=== PATIENT | female | born 1940 | race Caucasian/White ===

== ENCOUNTER 2016-08-30 10:42 | Inpatient (IN) | payer BC ==
--- NOTE | 2016-08-30 11:16 | ER Document Report ---
ED Medical Screen (RME) - General Stated Complaint: FALL/LEFT LEG PAIN Notes: Patient states that she was sent over from Dr. Solis office to rule out blood clot in the left leg. Patient fell on Friday, and had sudden pain and swelling since. Denies chest pain or shortness of breath. Patient states left lower leg is red and swollen. Patient denies previous history of DVTs. I have greeted and performed a rapid initial assessment of this patient. A comprehensive ED assessment and evaluation of the patient, analysis of test results and completion of the medical decision making process will be conducted by additional ED providers. TRAVEL OUTSIDE OF THE [place] IN LAST 30 DAYS: No - Related Data Allergies/Adverse Reactions: No Known Allergies Allergy (Verified 08/30/16 11:14) Past Medical History - Past Medical History Cardiac Medical History: Reports: Hx Hypertension Past Surgical History: Reports: Hx Cholecystectomy Physical Exam - Vital signs Vitals: Temp Pulse Resp BP Pulse Ox 97.3 F 91 20 157/72 H 97 08/30/16 11:10 08/30/16 11:10 08/30/16 11:10 08/30/16 11:10 08/30/16 11:10 - Skin Notes: Left lower leg from the knee down is red, swollen, and tender. Course - Vital Signs Vital signs: Temp Pulse Resp BP Pulse Ox 97.3 F 91 20 157/72 H 97 08/30/16 11:10 08/30/16 11:10 08/30/16 11:10 08/30/16 11:10 08/30/16 11:10
[2016-08-30 12:00] LABS: ALANINE AMINOTRANSFERASE 33 U/L (9-52); ALBUMIN 3.5 g/dL (3.5-5.0); ALKALINE PHOSPHATASE 164 U/L (38-126); ANION GAP 15 (5-19); ASPARTATE AMINO TRANSFERASE 49 U/L (14-36); BILIRUBIN,DIRECT 0.6 mg/dL (0.0-0.4); BILIRUBIN,TOTAL 0.9 mg/dL (0.2-1.3); BLOOD UREA NITROGEN 32 mg/dL (7-20); CALCIUM 9.3 mg/dL (8.4-10.2); CARBON DIOXIDE 24 mmol/L (22-30); CHLORIDE 103 mmol/L (98-107); CREATININE RESULT 1.45 mg/dL (0.52-1.25); GLUCOSE 143 mg/dL (75-110); POTASSIUM 3.9 mmol/L (3.6-5.0); TOTAL PROTEIN 7.1 g/dL (6.3-8.2)
--- NOTE | 2016-08-30 13:00 | VASCULAR PRELIM REPORT ---
Provider Note Provider Note: Called in to [employer] [facility]ba at 1256. negative for DVT. 3 cms, left Popliteal cyst.
[2016-08-30 13:56] LABS: ADD ON TESTING BLD IN LAB ACKNOWLEDGE
[2016-08-30] MEDS ORDERED: CLINDAMYCIN 600 MG/D5W RTU 50 ML IV ONE (14:09)
[2016-08-30 14:11] LABS: CREATINE KINASE 316 U/L (30-135)
[2016-08-30] MEDS ORDERED: DIPH/PERTUSS(ACELL)/TETANUS VAC/PF 0.5 ML SYR (>=10YO) IM ONE (14:17)
[2016-08-30] MEDS ORDERED: NORMAL SALINE 1000 ML 500 ML IV ONE (14:19)
--- NOTE | 2016-08-30 14:19 | ER Document Report ---
ED Extremity Problem, Lower - General Chief Complaint: Fall Stated Complaint: FALL/LEFT LEG PAIN Information source: Patient Notes: Patient states that she fell at home 2 days ago and was unable to get up immediately after the fall. Patient states she is uncertain what caused her to fall, patient is uncertain if she may have lost consciousness or not. Patient states that she laid in the bathroom floor for about an hour and then her got up and was able to help her get up. Patient states since then she has been ambulating without difficulty. Patient does complain of left lower extremity pain and redness that started to develop yesterday. Patient denies any fever. Patient denies any cough, cold symptoms, chest pain, or shortness of breath. TRAVEL OUTSIDE OF THE [place] IN LAST 30 DAYS: No - HPI Patient complains to provider of: Pain, Swelling Location: Leg. No: Knee Occurred: Yesterday Where: Home Onset/Duration: Worse Quality of pain: Achy Pain Level: 3 Context: Fell Recent injury: Yes Exacerbated by: Walking Relieved by: Nothing - Related Data Allergies/Adverse Reactions: No Known Allergies Allergy (Verified 08/30/16 11:14) Past Medical History - General Information source: Patient - Social History Smoking Status: Never Smoker Chew tobacco use (# tins/day): No Frequency of alcohol use: None Drug Abuse: None Occupation: none Lives with: Spouse/Significant other Family History: Reviewed & Not Pertinent - Past Medical History Cardiac Medical History: Reports: Hx Hypertension Renal/ Medical History: Denies: Hx Peritoneal Dialysis Past Surgical History: Reports: Hx Cholecystectomy Review of Systems - Review of Systems Constitutional: No symptoms reported. denies: Fever, Recent illness EENT: No symptoms reported Cardiovascular: No symptoms reported. denies: Chest pain, Heart racing, Dizziness, Lightheaded Respiratory: No symptoms reported. denies: Cough, Short of breath Gastrointestinal: No symptoms reported. denies: Abdominal pain, Nausea, Vomiting Genitourinary: No symptoms reported. denies: Dysuria Female Genitourinary: No symptoms reported Musculoskeletal: Other - Left lower extremity pain and swelling. denies: Back pain Skin: Change in color - Left lower extremity redness Hematologic/Lymphatic: No symptoms reported Neurological/Psychological: No symptoms reported Physical Exam - Vital signs Vitals: Temp Pulse Resp BP Pulse Ox 97.3 F 91 20 157/72 H 97 08/30/16 11:10 08/30/16 11:10 08/30/16 11:10 08/30/16 11:10 08/30/16 11:10 - General General appearance: Appears well, Alert In distress: None - HEENT Head: Normocephalic, Atraumatic Eyes: Normal Conjunctiva: Normal Nasal: Normal Mouth/Lips: Normal Mucous membranes: Normal Neck: Normal, Supple. No: Lymphadenopathy - Respiratory Respiratory status: No respiratory distress Chest status: Nontender Breath sounds: Normal. No: Rales, Rhonchi, Stridor, Wheezing Chest palpation: Normal - Cardiovascular Rhythm: Regular Heart sounds: S1 appreciated, S2 appreciated Murmur: No Pulses: Normal: Dorsalis pedis - Abdominal Inspection: Normal Distension: No distension Bowel sounds: Normal Tenderness: Nontender Organomegaly: No organomegaly - Back Back: Normal, Nontender. No: CVA tenderness, Vertebra tenderness - Extremities General upper extremity: Normal ROM, Other - Mild ecchymosis to distal third of right forearm General lower extremity: Tender - Left lower extremity tenderness from area distal to left knee, Normal ROM Shoulder: Normal, Nontender Arm: Normal, Nontender Elbow: Normal, Nontender Forearm: Normal, Nontender Wrist: Ecchymosis - Right wrist Hand: Normal, Nontender Hip: Normal, Nontender Thigh: Nontender, Other - Erythema to left groin Knee: Normal, Nontender Calf: Other - Erythema to left lower extremity from area just below the knee distally with 2-3+ edema Ankle: Other - Dry scaling skin bilateral ankles, skin tear to anterior aspect of right ankle Foot: Other - Erythema, edema to left foot - Neurological Neuro grossly intact: Yes Cognition: Normal Weatherly Coma Scale Eye Opening: Spontaneous Weatherly Coma Scale Verbal: Oriented Homer Coma Scale Motor: Obeys Commands Homer Coma Scale Total: 15 - Psychological Associated symptoms: Normal affect, Normal mood - Skin Skin Temperature: Warm Skin Moisture: Dry Skin Color: Erythema - Left lower extremity Skin irregularity: other - Skin tear anterior aspect of right ankle Course - Re-evaluation Re-evalutation: 08/30/16 14:[address] herndon regarding pt presentation, history and exam findings. Reviewed patient's history of fall as well as elevated D-dimer test. Does not advise any CT imaging. Patient without any chest pain, dyspnea or current complaints except for left lower extremity pain today. 08/30/16 16:57 Dr. Zheng agrees to accept patient for admission to medical floor. Patient updated on plan of care and is agreeable. - Vital Signs Vital signs: Temp Pulse Resp BP Pulse Ox 97.3 F 91 23 H 145/55 H 98 08/30/16 11:10 08/30/16 11:10 08/30/16 16:02 08/30/16 16:02 08/30/16 16:02 - Laboratory Result Diagrams: 08/30/16 15:35 08/30/16 11:28 Laboratory results interpreted by me: 08/30/16 08/30/16 08/30/16 11:28 11:28 11:28 WBC Hgb MCH RDW Seg Neuts % (Manual) Band Neutrophils % Lymphocytes % (Manual) Monocytes % (Manual) Abs Neuts (Manual) Abs Lymphs (Manual) D-Dimer 3.18 H BUN 32 H Creatinine 1.45 H Est GFR ( Amer) 43 L Est GFR (Non-Af Amer) 35 L Glucose 143 H Direct Bilirubin 0.6 H AST 49 H Alkaline Phosphatase 164 H Creatine Kinase 316 H Urine Protein Urine Ketones Urine Blood Urine Bilirubin Urine Urobilinogen Ur Leukocyte Esterase 08/30/16 08/30/16 13:30 15:35 WBC 39.8 H* Hgb 11.9 L MCH 25.8 L RDW 15.1 H Seg Neuts % (Manual) 84 H Band Neutrophils % 14 H Lymphocytes % (Manual) 1 L Monocytes % (Manual) 1 L Abs Neuts (Manual) 39.0 H Abs Lymphs (Manual) 0.4 L D-Dimer BUN Creatinine Est GFR ( Amer) Est GFR (Non-Af Amer) Glucose Direct Bilirubin AST Alkaline Phosphatase Creatine Kinase Urine Protein 100 H Urine Ketones TRACE H Urine Blood MODERATE H Urine Bilirubin SMALL H Urine Urobilinogen 2.0 H Ur Leukocyte Esterase MODERATE H 08/30/16 18:27 - Diagnostic Test Radiology reviewed: Reports reviewed Discharge - Discharge Clinical Impression: Bandemia Cellulitis Qualifiers: Site of cellulitis: extremity Site of cellulitis of extremity: lower extremity Laterality: left Qualified Code(s): L03.116 - Cellulitis of left lower limb UTI (urinary tract infection) Qualifiers: Urinary tract infection type: site unspecified Hematuria presence: with hematuria Qualified Code(s): N39.0 - Urinary tract infection, site not specified Condition: Stable Disposition: ADMITTED INPATIENT Admitting Provider: Hospitalist Unit Admitted: Medical Floor
[2016-08-30 14:20] LABS: APPEARANCE,URINE CLOUDY; BILIRUBIN,URINE SMALL (NEGATIVE); GLUCOSE, URINE NEGATIVE (NEGATIVE); KETONES,URINE TRACE mg/dL (NEGATIVE); LEUKOCYTE ESTERASE,URINE MODERATE (NEGATIVE); NITRITE,URINE NEGATIVE (NEGATIVE); PROTEIN,URINE 100 mg/dL (NEGATIVE); URINE SPECIFIC GRAVITY 1.026
[2016-08-30] MEDS ORDERED: NORMAL SALINE 1000 ML 1,000 ML IV ONE (15:10)
[2016-08-30] MEDS ORDERED: CEFTRIAXONE RTU 1 GM/D5W 50 ML IV ONE (15:14)
[2016-08-30 15:50] LABS: HEMOGLOBIN 11.9 g/dL (12.0-15.5); HGB HCT DIFFERENCE -1.3; MEAN CORPUSCULAR HEMOGLOBIN 25.8 pg (27.0-33.4); MEAN CORPUSCULAR HGB CONC 32.1 g/dL (32.0-36.0); MEAN CORPUSCULAR VOLUME 80 fl (80-97); RED CELL DISTRIBUTION WIDTH 15.1 % (11.5-14.0)
[2016-08-30 16:05] LABS: WHITE BLOOD COUNT 39.8 10^3/uL (4.0-10.5)
[2016-08-30 16:09] LABS: BASOPHILS % (MANUAL) 0 % (0-2); EOSINOPHILS % (MANUAL) 0 % (0-6); LYMPHOCYTES % (MANUAL) 1 % (13-45); TOTAL CELLS COUNTED 100
[2016-08-30 16:14] LABS: MICROCYTOSIS SLIGHT; TOXIC GRANULATION 1+; TOXIC VACUOLATION PRESENT
[2016-08-30 16:15] LABS: ANISOCYTOSIS SLIGHT
[2016-08-30 16:17] LABS: BAND NEUTROPHILS % (MANUAL) 14 % (3-5)
[2016-08-30] MEDS ORDERED: ACETAMINOPHEN 325 MG TABLET PO PRN (16:54)
--- NOTE | 2016-08-30 17:46 | PDOC H&P ---
History of Present Illness Admission Date/PCP: 08/30/16 17:20 Patient complains of: Left lower extremity pain and swelling History of Present Illness: ANGIE VUONG is a 76 year old female with past medical history of untreated hypertension chronic lower extremity swelling presents to days after sustaining a fall with one-day history of left lower extremity pain and swelling. She states that she has never formally been diagnosed with chronic venous stasis however she has obvious exam findings consistent with this. Past Medical History Cardiac Medical History: Reports: Hypertension Past Surgical History Past Surgical History: Reports: Cholecystectomy Social History Information Source: Patient Lives with: Spouse/Significant other Smoking Status: Never Smoker Frequency of Alcohol Use: None Hx Recreational Drug Use: No Hx Prescription Drug Abuse: No - Advance Directive Resuscitation Status: Full Code Family History Family History: Reviewed & Not Pertinent, Other - Mother had some type of heart disease, mother at age 92 Parental Family History Reviewed: Yes Children Family History Reviewed: Yes Sibling(s) Family History Reviewed.: Yes Medication/Allergy Home Medications: No Home Medications 09/07/14 Allergies/Adverse Reactions: No Known Allergies Allergy (Verified 08/30/16 11:14) Review of Systems Constitutional: ABSENT: chills, fever(s), headache(s), weight gain, weight loss Eyes: ABSENT: visual disturbances Ears: ABSENT: hearing changes Cardiovascular: PRESENT: edema. ABSENT: chest pain, dyspnea on exertion, orthropnea, palpitations Respiratory: ABSENT: cough, hemoptysis Gastrointestinal: ABSENT: abdominal pain, constipation, diarrhea, hematemesis, hematochezia, nausea, vomiting Genitourinary: ABSENT: dysuria, hematuria Musculoskeletal: PRESENT: other - LLE. ABSENT: joint swelling Integumentary: PRESENT: erythema - Left lower extremity, rash. ABSENT: wounds Neurological: ABSENT: abnormal gait, abnormal speech, confusion, dizziness, focal weakness, syncope Psychiatric: ABSENT: anxiety, depression, homidical ideation, suicidal ideation Endocrine: ABSENT: cold intolerance, heat intolerance, polydipsia, polyuria Hematologic/Lymphatic: ABSENT: easy bleeding, easy bruising Physical Exam Vital Signs: Temp Pulse Resp BP Pulse Ox 97.3 F 91 23 H 145/55 H 98 08/30/16 11:10 08/30/16 11:10 08/30/16 16:02 08/30/16 16:02 08/30/16 16:02 PHYSICAL EXAM: GENERAL: Appears well, no acute distress HEENT: Normocephalic, no scleral icterus, conjunctiva clear, EOEM intact, PERRLA , moist mucous membranes NECK: trachea midline, no thyromegally RESPIRATORY: Clear to auscultation, no wheezes/rhonchi CARDIAC: Regular rate and rhythm, no murmur/yolanda/rub ABDOMEN: Soft, no distension, no tenderness, no guarding, normal bowel sounds, negative Kaur sign RECTAL: deferred : deferred EXTREMITIES: Trace edema right lower extremity, 4+ edema left lower extremity MUSCULOSKELETAL: No joint swelling or deformity VASCULAR: normal peripheral pulses NEUROLOGIC: Alert, oriented to person/place/time, normal speech, cranial nerves grossly intact, 5/5 strength in all extremities, tactile sensation intact in all extremities SKIN: erythema/induration of LLE distal to knee, chronic skin changes consistent with chronic venous stasis in both lower extremities PSYCHIATRIC: Normal mood, normal affect Results Impressions: Tibia/Fibula X-Ray 08/30/16 14:06 IMPRESSION: NEGATIVE STUDY OF THE LEFT TIBIA AND FIBULA. NO RADIOGRAPHIC EVIDENCE OF ACUTE INJURY. Foot X-Ray 08/30/16 14:16 IMPRESSION: NEGATIVE STUDY OF THE LEFT FOOT. NO RADIOGRAPHIC EVIDENCE OF ACUTE INJURY. Assessment & Plan - Diagnosis (1) Systemic inflammatory response syndrome (SIRS) Is this a current diagnosis for this admission?: YesPlan: Secondary to left lower extremity cellulitis and urinary tract infection (2) Cellulitis Qualifiers: Site of cellulitis: extremity Site of cellulitis of extremity: lower extremity Laterality: left Qualified Code(s): L03.116 - Cellulitis of left lower limb Is this a current diagnosis for this admission?: YesPlan: Patient has left lower extremity cellulitis likely secondary to chronic venous stasis. Start IV Ancef. X-rays negative for fracture given history of fall. Left lower extremity Doppler negative for DVT per Dr. Glenis Watts. (3) Chronic venous stasis dermatitis Is this a current diagnosis for this admission?: Yes (4) UTI (urinary tract infection) Qualifiers: Urinary tract infection type: site unspecified Hematuria presence: with hematuria Qualified Code(s): N39.0 - Urinary tract infection, site not specified Is this a current diagnosis for this admission?: YesPlan: Patient will be on IV Ancef pending further urine culture. (5) Hypertension Is this a current diagnosis for this admission?: YesPlan: Patient does not take regular medications for this. Order when necessary IV hydralazine for now. (6) Ambulatory dysfunction Is this a current diagnosis for this admission?: YesPlan: Physical therapy to evaluate. - Time Time Spent: 50 to 70 Minutes
[2016-08-30] MEDS: CEFAZOLIN 1 GM/D5W RTU 50 ML IV SCH (18:14)
--- NOTE | 2016-08-30 18:25 | EKG REPORT ---
SEVERITY:- ABNORMAL ECG - SINUS RHYTHM VENTRICULAR PREMATURE COMPLEX LVH WITH SECONDARY REPOLARIZATION ABNORMALITY : Confirmed by: Javid Abel MD 30-Aug-2016 18:24:41
[2016-08-30] MEDS: HEPARIN SOD (PORCINE) 5,000 UNIT/ML 1 ML SYRINGE SUBCUT SCH (22:03)
[2016-08-30] MEDS: OXYCODONE-ACETAMINOPHEN 5-325 MG TABLET PO PRN (22:28)
[2016-08-31] MEDS: CEFAZOLIN 1 GM/D5W RTU 50 ML IV SCH ×4 (00:28→17:11)
[2016-08-31] MEDS: HEPARIN SOD (PORCINE) 5,000 UNIT/ML 1 ML SYRINGE SUBCUT SCH ×3 (05:24→21:14)
[2016-08-31 06:54] LABS: HEMATOCRIT 34.5 % (36.0-47.0); HEMOGLOBIN 11.3 g/dL (12.0-15.5); HGB HCT DIFFERENCE -0.6; MEAN CORPUSCULAR HEMOGLOBIN 26.1 pg (27.0-33.4); MEAN CORPUSCULAR HGB CONC 32.7 g/dL (32.0-36.0); MEAN CORPUSCULAR VOLUME 80 fl (80-97); RED BLOOD COUNT 4.31 10^6/uL (3.72-5.28); RED CELL DISTRIBUTION WIDTH 15.2 % (11.5-14.0)
[2016-08-31 06:55] LABS: ANION GAP 17 (5-19); BLOOD UREA NITROGEN 49 mg/dL (7-20); CALCIUM 8.6 mg/dL (8.4-10.2); CARBON DIOXIDE 20 mmol/L (22-30); CHLORIDE 103 mmol/L (98-107); CREATININE RESULT 1.68 mg/dL (0.52-1.25); GLUCOSE 109 mg/dL (75-110); POTASSIUM 3.9 mmol/L (3.6-5.0)
[2016-08-31 06:57] LABS: WHITE BLOOD COUNT 40.5 10^3/uL (4.0-10.5)
[2016-08-31 07:25] LABS: BAND NEUTROPHILS % (MANUAL) 7 % (3-5); BASOPHILS % (MANUAL) 0 % (0-2); EOSINOPHILS % (MANUAL) 0 % (0-6); LYMPHOCYTES % (MANUAL) 3 % (13-45); TOTAL CELLS COUNTED 100
[2016-08-31 07:27] LABS: ANISOCYTOSIS SLIGHT; HYPOCHROMASIA 1+; MICROCYTOSIS SLIGHT; OVALOCYTES 1+; POIKILOCYTOSIS 1+; TOXIC GRANULATION 1+; TOXIC VACUOLATION PRESENT
[2016-08-31] MEDS: OXYCODONE-ACETAMINOPHEN 5-325 MG TABLET PO PRN ×2 (09:06→21:14)
[2016-08-31] MEDS: ONDANSETRON HCL INJ/PF 4 MG/2 ML SDV IV PRN (15:06)
--- NOTE | 2016-08-31 19:54 | PDOC PROGRESS REPORT ---
Subjective Progress Note for:: 08/31/16 Subjective:: The patient to is being treated for cellulitis of the left lower extremity and urinary tract infection. She was crying today, frustrated that she is sick and in the hospital when she is needed at home to help her sick . Physical Exam Vital Signs: Temp Pulse Resp BP Pulse Ox 97.5 F 86 20 134/56 H 100 08/31/16 15:59 08/31/16 15:59 08/31/16 15:59 08/31/16 15:59 08/31/16 15:59 Intake & Output 08/30/16 08/31/16 09/01/16 06:59 06:59 06:59 Intake Total 1060 700 Balance 1060 700 Weight 101.9 kg 101.9 kg Additional comments: GENERAL: Appears well, no acute distress HEENT: Normocephalic, no scleral icterus, conjunctiva clear, EOEM intact, PERRLA , moist mucous membranes NECK: trachea midline, no thyromegally RESPIRATORY: Clear to auscultation, no wheezes/rhonchi CARDIAC: Regular rate and rhythm, no murmur/yolanda/rub ABDOMEN: Soft, no distension, no tenderness, no guarding, normal bowel sounds, negative Kaur sign RECTAL: deferred : deferred EXTREMITIES: Trace edema right lower extremity, 3+ edema left lower extremity which is now less erythematous MUSCULOSKELETAL: No joint swelling or deformity VASCULAR: normal peripheral pulses NEUROLOGIC: Alert, oriented to person/place/time, normal speech, cranial nerves grossly intact, 5/5 strength in all extremities, tactile sensation intact in all extremities SKIN: erythema/induration of LLE distal to knee, chronic skin changes consistent with chronic venous stasis in both lower extremities PSYCHIATRIC: Normal mood, normal affect Results Laboratory Results: 08/31/16 05:39 08/31/16 05:39 08/31/16 08/31/16 05:39 05:39 WBC 40.5 H* RBC 4.31 Hgb 11.3 L Hct 34.5 L MCV 80 MCH 26.1 L MCHC 32.7 RDW 15.2 H Plt Count 299 Seg Neutrophils % Not Reportable Lymphocytes % Not Reportable Monocytes % Not Reportable Eosinophils % Not Reportable Basophils % Not Reportable Absolute Neutrophils Not Reportable Absolute Lymphocytes Not Reportable Absolute Monocytes Not Reportable Absolute Eosinophils Not Reportable Absolute Basophils Not Reportable Sodium 140.0 Potassium 3.9 Chloride 103 Carbon Dioxide 20 L Anion Gap 17 BUN 49 H Creatinine 1.68 H Est GFR ( Amer) 36 L Est GFR (Non-Af Amer) 30 L Glucose 109 Calcium 8.6 Impressions: Tibia/Fibula X-Ray 08/30/16 14:06 IMPRESSION: NEGATIVE STUDY OF THE LEFT TIBIA AND FIBULA. NO RADIOGRAPHIC EVIDENCE OF ACUTE INJURY. Foot X-Ray 08/30/16 14:16 IMPRESSION: NEGATIVE STUDY OF THE LEFT FOOT. NO RADIOGRAPHIC EVIDENCE OF ACUTE INJURY. Assessment & Plan - Diagnosis (1) Systemic inflammatory response syndrome (SIRS) Is this a current diagnosis for this admission?: YesPlan: The systemic nature of this infection has now resolved. (2) Cellulitis Qualifiers: Site of cellulitis: extremity Site of cellulitis of extremity: lower extremity Laterality: left Qualified Code(s): L03.116 - Cellulitis of left lower limb Is this a current diagnosis for this admission?: YesPlan: Severe cellulitis of the left lower extremity due to chronic venous stasis. She is responding to bedrest and IV Ancef. (3) Chronic venous stasis dermatitis Is this a current diagnosis for this admission?: Yes (4) UTI (urinary tract infection) Qualifiers: Urinary tract infection type: site unspecified Hematuria presence: with hematuria Qualified Code(s): N39.0 - Urinary tract infection, site not specified Is this a current diagnosis for this admission?: YesPlan: Continue on IV Ancef while awaiting results of urine culture and sensitivity. (5) Hypertension Is this a current diagnosis for this admission?: YesPlan: Continue monitoring and treat if need be. (6) Ambulatory dysfunction Is this a current diagnosis for this admission?: YesPlan: PT eval/Rx.
[2016-09-01] MEDS: CEFAZOLIN 1 GM/D5W RTU 50 ML IV SCH ×2 (00:36→06:21)
[2016-09-01] MEDS: HEPARIN SOD (PORCINE) 5,000 UNIT/ML 1 ML SYRINGE SUBCUT SCH ×3 (06:21→21:27)
[2016-09-01 07:39] LABS: HEMATOCRIT 34.8 % (36.0-47.0); HGB HCT DIFFERENCE -1.8; MEAN CORPUSCULAR HEMOGLOBIN 25.3 pg (27.0-33.4); MEAN CORPUSCULAR HGB CONC 31.5 g/dL (32.0-36.0); MEAN CORPUSCULAR VOLUME 80 fl (80-97); RED BLOOD COUNT 4.33 10^6/uL (3.72-5.28); RED CELL DISTRIBUTION WIDTH 15.9 % (11.5-14.0)
[2016-09-01 07:45] LABS: ANION GAP 17 (5-19); BLOOD UREA NITROGEN 64 mg/dL (7-20); CALCIUM 8.6 mg/dL (8.4-10.2); CARBON DIOXIDE 21 mmol/L (22-30); CHLORIDE 101 mmol/L (98-107); CREATININE RESULT 1.86 mg/dL (0.52-1.25); GLUCOSE 115 mg/dL (75-110); POTASSIUM 4.1 mmol/L (3.6-5.0); SODIUM 139.1 mmol/L (137-145)
[2016-09-01 08:05] LABS: BAND NEUTROPHILS % (MANUAL) 7 % (3-5); BASOPHILS % (MANUAL) 0 % (0-2); EOSINOPHILS % (MANUAL) 0 % (0-6); LYMPHOCYTES % (MANUAL) 1 % (13-45); TOTAL CELLS COUNTED 100
[2016-09-01 08:08] LABS: ANISOCYTOSIS SLIGHT; BURR CELLS SLIGHT; HYPOCHROMASIA SLIGHT; OVALOCYTES SLIGHT; POIKILOCYTOSIS 1+; TOXIC GRANULATION SLIGHT
[2016-09-01 08:09] LABS: PLATELET CLUMPS PRESENT; ROULEAUX SLIGHT
[2016-09-01 08:12] LABS: WHITE BLOOD COUNT 45.3 10^3/uL (4.0-10.5)
[2016-09-01] MEDS ORDERED: VANCOMYCIN HCL 0 MG in DEXTROSE 5%-WATER 250 ML IV NR (12:15)
--- NOTE | 2016-09-01 12:22 | PDOC PROGRESS REPORT ---
Subjective Progress Note for:: 09/01/16 Subjective:: The patient is being treated for cellulitis of the left lower extremity and urinary tract infection. She has been receiving Ancef. The white blood count continues to steadily rise. WBC 45,000 yesterday with left shift. She remains afebrile and vital signs stable. Blood cultures remain negative. The urine culture preliminary shows gram-negative rods. Physical Exam Vital Signs: Temp Pulse Resp BP Pulse Ox 98.6 F 85 20 116/71 100 08/31/16 23:52 08/31/16 23:52 08/31/16 23:52 08/31/16 23:52 08/31/16 23:52 Intake & Output 08/31/16 09/01/16 09/02/16 06:59 06:59 06:59 Intake Total 1060 860 Balance 1060 860 Weight 101.9 kg 102.4 kg Additional comments: GENERAL: Appears well, no acute distress HEENT: Normocephalic, no scleral icterus, conjunctiva clear, EOEM intact, PERRLA , moist mucous membranes NECK: trachea midline, no thyromegally RESPIRATORY: Clear to auscultation, no wheezes/rhonchi CARDIAC: Regular rate and rhythm, no murmur/yolanda/rub ABDOMEN: Soft, no distension, no tenderness, no guarding, normal bowel sounds, negative Kaur sign RECTAL: deferred : deferred EXTREMITIES: Trace edema right lower extremity, 3+ edema left lower extremity, the erythema is stable MUSCULOSKELETAL: No joint swelling or deformity VASCULAR: normal peripheral pulses NEUROLOGIC: Alert, oriented to person/place/time, normal speech, cranial nerves grossly intact, 5/5 strength in all extremities, tactile sensation intact in all extremities SKIN: erythema/induration of LLE distal to knee, chronic skin changes consistent with chronic venous stasis in both lower extremities PSYCHIATRIC: Normal mood, normal affect Results Laboratory Results: 09/01/16 06:39 09/01/16 06:39 09/01/16 09/01/16 06:39 06:39 WBC 45.3 H* RBC 4.33 Hgb 11.0 L Hct 34.8 L MCV 80 MCH 25.3 L MCHC 31.5 L RDW 15.9 H Plt Count 338 Seg Neutrophils % Not Reportable Lymphocytes % Not Reportable Monocytes % Not Reportable Eosinophils % Not Reportable Basophils % Not Reportable Absolute Neutrophils Not Reportable Absolute Lymphocytes Not Reportable Absolute Monocytes Not Reportable Absolute Eosinophils Not Reportable Absolute Basophils Not Reportable Sodium 139.1 Potassium 4.1 Chloride 101 Carbon Dioxide 21 L Anion Gap 17 BUN 64 H Creatinine 1.86 H Est GFR ( Amer) 32 L Est GFR (Non-Af Amer) 26 L Glucose 115 H Calcium 8.6 Impressions: Tibia/Fibula X-Ray 08/30/16 14:06 IMPRESSION: NEGATIVE STUDY OF THE LEFT TIBIA AND FIBULA. NO RADIOGRAPHIC EVIDENCE OF ACUTE INJURY. Foot X-Ray 08/30/16 14:16 IMPRESSION: NEGATIVE STUDY OF THE LEFT FOOT. NO RADIOGRAPHIC EVIDENCE OF ACUTE INJURY. Assessment & Plan - Diagnosis (1) Systemic inflammatory response syndrome (SIRS) Is this a current diagnosis for this admission?: YesPlan: The white blood count remains very high but the patient remains afebrile and vital signs stable. She denies sweats or chills. She denies nausea vomiting or diarrhea. She denies urinary frequency urgency or dysuria. (2) Cellulitis Qualifiers: Site of cellulitis: extremity Site of cellulitis of extremity: lower extremity Laterality: left Qualified Code(s): L03.116 - Cellulitis of left lower limb Is this a current diagnosis for this admission?: YesPlan: Both lower extremities show changes of chronic stasis dermatitis with some skin cracking/splitting. The left lower extremity has cellulitis with edema, erythema and warmth. There is no drainage. With a rising white blood count, I will stop the Ancef and switch to vancomycin for MRSA coverage. We'll continue to monitor her vital signs and laboratories. (3) Chronic venous stasis dermatitis Is this a current diagnosis for this admission?: Yes (4) UTI (urinary tract infection) Qualifiers: Urinary tract infection type: site unspecified Hematuria presence: with hematuria Qualified Code(s): N39.0 - Urinary tract infection, site not specified Is this a current diagnosis for this admission?: YesPlan: Preliminary report is of gram-negative rods. We'll add Levaquin. (5) Hypertension Is this a current diagnosis for this admission?: YesPlan: Continue current Rx and monitoring. (6) Ambulatory dysfunction Is this a current diagnosis for this admission?: YesPlan: PT eval/Rx.
[2016-09-01] MEDS: VANCOMYCIN HCL 1,000 MG in DEXTROSE 5%-WATER 250 ML IV SCH (15:20)
[2016-09-01] MEDS: LEVOFLOXACIN 500 MG/D5W RTU 500 MG/100 ML RTUPB IV SCH (15:21)
--- NOTE | 2016-09-01 15:32 | XCELERA REPORT ---
[address] [address] Lower Extremity Venous Evaluation Name: ANGIE VUONG Age: 76 yrs Gender: Female : 1940 Patient Status: Preadmit Patient Location: ER Study Date: 08/30/2016 11:46 AM Procedure: Color flow and duplex imaging of the veins of the left lower extremity as well as the right Common Femoral vein. Reason For Study: left leg redness and swelling Ordering Physician: BECKY FLOREZ Performed By: Jazzy Sebastian Right Sided Venous Evaluation The right common femoral vein is fully compressible. Spontaneous and phasic flow is present in the right common femoral vein. Left Sided Venous Evaluation A 3 x 1 .1 cm lucent non vascular finding in the Popliteal area noted. Normal vessel filling wall to wall, compression and augmentation as well as Colour flow down to the infrageniculate veins. Critical Findings Per preliminary report. Interpretation Summary No duplex evidence of DVT or obstruction in the left lower extremity nor in the right Common Femoral vein. : BECKY FLOREZ [place]
[2016-09-01] MEDS ORDERED: MAG HYDROX/AL HYDROX/SIMETH SUSP 30 ML UDCUP PO ONE (21:00)
[2016-09-01] MEDS: OXYCODONE-ACETAMINOPHEN 5-325 MG TABLET PO PRN (21:27)
[2016-09-02] MEDS: HEPARIN SOD (PORCINE) 5,000 UNIT/ML 1 ML SYRINGE SUBCUT SCH ×3 (06:16→21:54)
[2016-09-02 06:42] LABS: ANION GAP 14 (5-19); BLOOD UREA NITROGEN 64 mg/dL (7-20); CALCIUM 8.8 mg/dL (8.4-10.2); CARBON DIOXIDE 23 mmol/L (22-30); CHLORIDE 102 mmol/L (98-107); CREATININE RESULT 1.61 mg/dL (0.52-1.25); GLUCOSE 120 mg/dL (75-110); POTASSIUM 4.5 mmol/L (3.6-5.0); SODIUM 139.2 mmol/L (137-145)
[2016-09-02 06:58] LABS: MEAN CORPUSCULAR VOLUME 79 fl (80-97)
[2016-09-02 07:05] LABS: MEAN CORPUSCULAR HEMOGLOBIN 25.7 pg (27.0-33.4); MEAN CORPUSCULAR HGB CONC 32.5 g/dL (32.0-36.0); RED BLOOD COUNT 4.68 10^6/uL (3.72-5.28); RED CELL DISTRIBUTION WIDTH 15.6 % (11.5-14.0)
[2016-09-02 07:17] LABS: WHITE BLOOD COUNT 47.1 10^3/uL (4.0-10.5)
[2016-09-02 07:22] LABS: BAND NEUTROPHILS % (MANUAL) 1 % (3-5); BASOPHILS % (MANUAL) 0 % (0-2); EOSINOPHILS % (MANUAL) 0 % (0-6); LYMPHOCYTES % (MANUAL) 7 % (13-45); TOTAL CELLS COUNTED 100
[2016-09-02 07:25] LABS: ANISOCYTOSIS 1+; MICROCYTOSIS SLIGHT; TOXIC GRANULATION 1+; TOXIC VACUOLATION PRESENT
[2016-09-02] MEDS: VANCOMYCIN HCL 1,000 MG in DEXTROSE 5%-WATER 250 ML IV SCH (12:12)
[2016-09-02 12:32] LABS: PATH REVIEW PATHOLOGIST REVIEWED
[2016-09-02] MEDS: LEVOFLOXACIN 500 MG/D5W RTU 500 MG/100 ML RTUPB IV SCH (13:42)
[2016-09-02] MEDS: OXYCODONE-ACETAMINOPHEN 5-325 MG TABLET PO PRN ×2 (13:43→23:37)
--- NOTE | 2016-09-02 14:49 | PDOC PROGRESS REPORT ---
Subjective Progress Note for:: 09/02/16 Subjective:: The patient is being treated for cellulitis of the left lower extremity and urinary tract infection. She initially received Ancef but the white count continued to steadily rise. Yesterday, Ancef was switched to vancomycin. Preliminary urine culture showed gram-negative rods, so Levaquin was added as well. Today, the patient feels subjectively better. Her leg looks no worse, though still remains swollen and inflamed. The white blood count is marginally higher , but the bandemia has dramatically improved. Of note, the urine culture is no reported. Both isolates are sensitive to the current Levaquin. Physical Exam Vital Signs: Temp Pulse Resp BP Pulse Ox 97.6 F 89 16 148/60 H 99 09/02/16 11:15 09/02/16 11:15 09/02/16 11:15 09/02/16 11:15 09/02/16 11:15 Intake & Output 09/01/16 09/02/16 09/03/16 06:59 06:59 06:59 Intake Total 860 1175 Balance 860 1175 Weight 102.4 kg 104.6 kg Additional comments: GENERAL: Appears well, no acute distress HEENT: Normocephalic, no scleral icterus, conjunctiva clear, EOEM intact, PERRLA , moist mucous membranes NECK: trachea midline, no thyromegally RESPIRATORY: Clear to auscultation, no wheezes/rhonchi CARDIAC: Regular rate and rhythm, no murmur/yolanda/rub ABDOMEN: Soft, no distension, no tenderness, no guarding, normal bowel sounds, negative Kaur sign RECTAL: deferred : deferred EXTREMITIES: Trace edema right lower extremity, 3+ edema left lower extremity, the erythema is stable, no drainage MUSCULOSKELETAL: No joint swelling or deformity VASCULAR: normal peripheral pulses NEUROLOGIC: Alert, oriented to person/place/time, normal speech, cranial nerves grossly intact, 5/5 strength in all extremities, tactile sensation intact in all extremities SKIN: erythema/induration of LLE distal to knee, chronic skin changes consistent with chronic venous stasis in both lower extremities PSYCHIATRIC: Normal mood, normal affect Results Laboratory Results: 09/02/16 05:59 09/02/16 05:59 09/02/16 09/02/16 05:59 05:59 WBC 47.1 H* RBC 4.68 Hgb 12.0 Hct 37.0 MCV 79 L MCH 25.7 L MCHC 32.5 RDW 15.6 H Plt Count 378 Seg Neutrophils % Not Reportable Lymphocytes % Not Reportable Monocytes % Not Reportable Eosinophils % Not Reportable Basophils % Not Reportable Absolute Neutrophils Not Reportable Absolute Lymphocytes Not Reportable Absolute Monocytes Not Reportable Absolute Eosinophils Not Reportable Absolute Basophils Not Reportable Sodium 139.2 Potassium 4.5 Chloride 102 Carbon Dioxide 23 Anion Gap 14 BUN 64 H Creatinine 1.61 H Est GFR ( Amer) 38 L Est GFR (Non-Af Amer) 31 L Glucose 120 H Calcium 8.8 Impressions: Tibia/Fibula X-Ray 08/30/16 14:06 IMPRESSION: NEGATIVE STUDY OF THE LEFT TIBIA AND FIBULA. NO RADIOGRAPHIC EVIDENCE OF ACUTE INJURY. Foot X-Ray 08/30/16 14:16 IMPRESSION: NEGATIVE STUDY OF THE LEFT FOOT. NO RADIOGRAPHIC EVIDENCE OF ACUTE INJURY. Assessment & Plan - Diagnosis (1) Systemic inflammatory response syndrome (SIRS) Is this a current diagnosis for this admission?: YesPlan: The white blood count remains very high but the patient remains afebrile and vital signs stable. She denies sweats or chills. She denies nausea vomiting or diarrhea. She denies urinary frequency urgency or dysuria. (2) Cellulitis Qualifiers: Site of cellulitis: extremity Site of cellulitis of extremity: lower extremity Laterality: left Qualified Code(s): L03.116 - Cellulitis of left lower limb Is this a current diagnosis for this admission?: YesPlan: She has changes of chronic venous insufficiency with stasis dermatitis of bilateral lower extremities. There is some skin cracking/splitting. The left lower extremity has cellulitis with edema, erythema and warmth. There is no drainage. Clinically, the erythema has perhaps slightly improved. However the white blood count continued to rise. Ancef was stopped yesterday and switched to vancomycin for MRSA coverage. Today the white blood count is marginally higher but the bandemia has significantly improved. We will continue current Rx and monitoring the blood counts. (3) Chronic venous stasis dermatitis Is this a current diagnosis for this admission?: Yes (4) UTI (urinary tract infection) Qualifiers: Urinary tract infection type: site unspecified Hematuria presence: with hematuria Qualified Code(s): N39.0 - Urinary tract infection, site not specified Is this a current diagnosis for this admission?: YesPlan: Urinary tract infection with Proteus and Escherichia coli, both sensitive to the current Levaquin. (5) Hypertension Is this a current diagnosis for this admission?: YesPlan: Continue current Rx and monitoring. (6) Ambulatory dysfunction Is this a current diagnosis for this admission?: YesPlan: PT eval/Rx.
[2016-09-02] MEDS ORDERED: POLYETHYLENE GLYCOL 3350 POWDER 17 GM/1 PACKET PO SCH (15:00)
[2016-09-02] MEDS: POLYETHYLENE GLYCOL 3350 POWDER 17 GM/1 PACKET PO SCH (17:29)
[2016-09-02] MEDS: DOCUSATE SODIUM 100 MG CAPSULE PO SCH (17:30)
[2016-09-02] MEDS: FAMOTIDINE 20 MG TABLET PO SCH (17:30)
[2016-09-02] MEDS: HYDRALAZINE HCL INJ/PF 20 MG/1 ML SDV IV PRN (23:37)
[2016-09-03] MEDS: FAMOTIDINE 20 MG TABLET PO SCH ×2 (06:09→17:00)
[2016-09-03] MEDS: HEPARIN SOD (PORCINE) 5,000 UNIT/ML 1 ML SYRINGE SUBCUT SCH ×3 (06:09→21:49)
[2016-09-03 07:18] LABS: HEMATOCRIT 31.7 % (36.0-47.0); HEMOGLOBIN 10.2 g/dL (12.0-15.5); HGB HCT DIFFERENCE -1.1; MEAN CORPUSCULAR HEMOGLOBIN 25.5 pg (27.0-33.4); MEAN CORPUSCULAR HGB CONC 32.4 g/dL (32.0-36.0); MEAN CORPUSCULAR VOLUME 79 fl (80-97); RED BLOOD COUNT 4.01 10^6/uL (3.72-5.28); RED CELL DISTRIBUTION WIDTH 15.5 % (11.5-14.0)
[2016-09-03 07:37] LABS: ANION GAP 14 (5-19); BLOOD UREA NITROGEN 52 mg/dL (7-20); CALCIUM 8.4 mg/dL (8.4-10.2); CARBON DIOXIDE 22 mmol/L (22-30); CHLORIDE 102 mmol/L (98-107); CREATININE RESULT 1.42 mg/dL (0.52-1.25); GLUCOSE 151 mg/dL (75-110); POTASSIUM 3.8 mmol/L (3.6-5.0); SODIUM 138.3 mmol/L (137-145)
[2016-09-03 08:02] LABS: BAND NEUTROPHILS % (MANUAL) 2 % (3-5); BASOPHILS % (MANUAL) 0 % (0-2); EOSINOPHILS % (MANUAL) 0 % (0-6); LYMPHOCYTES % (MANUAL) 1 % (13-45); TOTAL CELLS COUNTED 100
[2016-09-03 08:03] LABS: ANISOCYTOSIS SLIGHT; TOXIC GRANULATION 1+
[2016-09-03 08:04] LABS: MICROCYTOSIS SLIGHT; TOXIC VACUOLATION PRESENT
[2016-09-03 08:05] LABS: WHITE BLOOD COUNT 44.3 10^3/uL (4.0-10.5)
[2016-09-03] MEDS: DOCUSATE SODIUM 100 MG CAPSULE PO SCH ×2 (09:14→17:00)
[2016-09-03] MEDS: VANCOMYCIN HCL 1,000 MG in DEXTROSE 5%-WATER 250 ML IV SCH (12:11)
[2016-09-03] MEDS: CLINDAMYCIN 900 MG/D5W RTU 50 ML IV SCH ×2 (14:28→21:49)
[2016-09-03] MEDS ORDERED: FUROSEMIDE INJ/PF 20 MG/2 ML SDV IV ONE (15:00)
--- NOTE | 2016-09-03 16:38 | XCELERA REPORT ---
[address] [address] Lower Extremity Venous Evaluation Name: ANGIE VUONG Age: 76 yrs Gender: Female : 1940 Patient Status: Inpatient Patient Location: \S\[facility]\S\B Study Date: 09/03/2016 03:11 PM Procedure: Color flow and duplex imaging of the veins of the right lower extremity as well as the left Common Femoral vein. Reason For Study: WORSENING RIGHT LOWER LEG EDEMA WITH CELLULITIS Ordering Physician: GEN CABA Performed By: Jhonny Persaud Right Sided Venous Evaluation Normal vessel filling wall to wall, compression and augmentation as well as Colour flow down to the infrageniculate veins. Left Sided Venous Evaluation The left common femoral vein is fully compressible. Spontaneous and phasic flow is present in the left common femoral vein. Interpretation Summary No duplex evidence of DVT or obstruction in the right lower extremity nor in the left Common Femoral vein. : GEN CABA [place]
[2016-09-03] MEDS: POLYETHYLENE GLYCOL 3350 POWDER 17 GM/1 PACKET PO SCH (17:00)
[2016-09-03] MEDS: PIPERACILLIN SODIUM/TAZOBACTAM 4.5 GM in NORMAL SALINE 100 ML IV SCH (17:00)
--- NOTE | 2016-09-03 17:24 | PDOC PROGRESS REPORT ---
Subjective Progress Note for:: 09/03/16 Subjective:: Patient seen on morning rounds. She is resting in bed with her legs elevated. She has bilateral lower extremity edema, redness both lower extremities now, and flaking skin. She has blistered area of the left lower extremity, for skin has exfoliated. She denies any fever or chills. She denies any shortness of breath, dyspnea or chest pain. She states swelling of both extremities has been increasing. She states initially she did not have redness of the lower extremity when she presented here. She continues to have a significant leukocytosis on her CBC, as well as bandemia, on current antibiotic therapy. She states prior to her admission she was able to ambulate without difficulty. Now it is difficult for her to stand and pivot to the bedside commode. She was working part-time prior to her arrival here. She does admit to chronic venous insufficiency in both legs and intermittent swelling. Physical Exam Vital Signs: Temp Pulse Resp BP Pulse Ox 98.2 F 96 16 152/55 H 99 09/03/16 16:00 09/03/16 16:00 09/03/16 16:00 09/03/16 16:00 09/03/16 16:00 Intake & Output 09/02/16 09/03/16 09/04/16 06:59 06:59 06:59 Intake Total 1175 1160 400 Balance 1175 1160 400 Weight 104.6 kg 105.8 kg General appearance: PRESENT: no acute distress, morbidly obese, well-developed, well-nourished Head exam: PRESENT: atraumatic, normocephalic Eye exam: PRESENT: conjunctiva pink, EOMI, PERRLA. ABSENT: scleral icterus Ear exam: PRESENT: normal external ear exam Mouth exam: PRESENT: moist, tongue midline Neck exam: ABSENT: carotid bruit, JVD, lymphadenopathy, thyromegaly Respiratory exam: PRESENT: decreased breath sounds, symmetrical, tachypnea, unlabored Cardiovascular exam: PRESENT: +S1, +S2, systolic murmur Pulses: PRESENT: normal carotid pulses, normal radial pulses Vascular exam: PRESENT: other - +3 edema, with erythema, peeling skin, and serous drainage of both lower extremities from pedal to knees. GI/Abdominal exam: PRESENT: normal bowel sounds, soft. ABSENT: distended, guarding, mass, organolmegaly, rebound, tenderness Rectal exam: PRESENT: deferred Extremities exam: PRESENT: calf tenderness, tenderness - + bilateral lower extremity, other Musculoskeletal exam: PRESENT: full ROM Neurological exam: PRESENT: alert, awake, oriented to person, oriented to place , oriented to time, oriented to situation, CN II-XII grossly intact. ABSENT: motor sensory deficit Psychiatric exam: PRESENT: appropriate affect, normal mood. ABSENT: homicidal ideation, suicidal ideation Skin exam: PRESENT: dry, intact, warm, other - as above. ABSENT: cyanosis, rash Results Laboratory Results: 09/03/16 06:34 09/03/16 06:34 09/03/16 09/03/16 06:34 06:34 WBC 44.3 H* RBC 4.01 Hgb 10.2 L Hct 31.7 L MCV 79 L MCH 25.5 L MCHC 32.4 RDW 15.5 H Plt Count 419 Seg Neutrophils % Not Reportable Lymphocytes % Not Reportable Monocytes % Not Reportable Eosinophils % Not Reportable Basophils % Not Reportable Absolute Neutrophils Not Reportable Absolute Lymphocytes Not Reportable Absolute Monocytes Not Reportable Absolute Eosinophils Not Reportable Absolute Basophils Not Reportable Sodium 138.3 Potassium 3.8 Chloride 102 Carbon Dioxide 22 Anion Gap 14 BUN 52 H Creatinine 1.42 H Est GFR ( Amer) 44 L Est GFR (Non-Af Amer) 36 L Glucose 151 H Calcium 8.4 Impressions: Tibia/Fibula X-Ray 08/30/16 14:06 IMPRESSION: NEGATIVE STUDY OF THE LEFT TIBIA AND FIBULA. NO RADIOGRAPHIC EVIDENCE OF ACUTE INJURY. Foot X-Ray 08/30/16 14:16 IMPRESSION: NEGATIVE STUDY OF THE LEFT FOOT. NO RADIOGRAPHIC EVIDENCE OF ACUTE INJURY. Assessment & Plan - Diagnosis (1) Cellulitis Qualifiers: Site of cellulitis: extremity Site of cellulitis of extremity: lower extremity Laterality: left Qualified Code(s): L03.116 - Cellulitis of left lower limb Is this a current diagnosis for this admission?: YesPlan: Patient initially by her description, as well as nursing staff, presented with left lower extremity swelling and redness. She is now has bilateral lower extremity swelling and redness, blistered peeling areas on both legs. Continues to have significant leukocytosis with white blood count in the 40,000 as well as bandemia on current IV antibiotics. We will reculture the patient discontinue current antibiotics place patient on IV clindamycin, Zosyn and daptomycin. (2) UTI (urinary tract infection) Qualifiers: Urinary tract infection type: site unspecified Hematuria presence: with hematuria Qualified Code(s): N39.0 - Urinary tract infection, site not specified Is this a current diagnosis for this admission?: YesPlan: Patient currently has growing a e- coli and Proteus mirabilis. This will be covered by daptomycin. (3) Bandemia Is this a current diagnosis for this admission?: YesPlan: Likely secondary to worsening cellulitis despite current antibiotic treatment. We will therefore reculture patient and change antibiotic therapy. (4) Chronic venous stasis dermatitis Is this a current diagnosis for this admission?: YesPlan: We'll obtain venous ultrasound of right lower extremity to rule out DVT. (5) Hypertension Qualifiers: Hypertension type: essential hypertension Qualified Code(s): I10 - Essential (primary) hypertension Is this a current diagnosis for this admission?: YesPlan: Continue current medications. (6) Lower extremity edema Qualifiers: Laterality: bilateral Qualified Code(s): R60.0 - Localized edema Is this a current diagnosis for this admission?: YesPlan: This is worsened according to patient and nursing staff. Give 1 dose of IV Lasix obtain transthoracic echocardiogram - Time Time Spent with patient: 25-34 minutes Critical Time spent with patient: 25-34 minutes Medications reviewed and adjusted accordingly: Yes Anticipated discharge: Home - Inpatient Certification Based on my medical assessment, after consideration of the patient's comorbidities, presenting symptoms, or acuity I expect that the services needed warrant INPATIENT care.: Yes I certify that my determination is in accordance with my understanding of Medicare's requirements for reasonable and necessary INPATIENT services [42 CFR 412.3e].: Yes Medical Necessity: Significant Comorbidiites Make Outpatient Treatment Too Risky , Need Close Monitoring Due to Risk of Patient Decompensation, Need for IV Antibiotics
--- NOTE | 2016-09-03 18:31 | XCELERA REPORT ---
[address] [address] Transthoracic Echocardiogram Report Name: ANGIE VUONG Age: 76 yrs Gender: Female : 1940 Patient Status: Inpatient Patient Location: [id number]\S\426\S\B Study Date: 09/03/2016 02:51 PM Height: 63 in Weight: 233 lb BSA: 2.1 m2 Procedure: A two-dimensional transthoracic echocardiogram with color flow and Doppler was performed. Study Quality: Fair. Reason For Study: SOB / EDEMA History: SOB / EDEMA. Ordering Physician: GEN CABA Performed By: Jhonny Persaud Interpretation Summary The left ventricle is normal in size. There is normal left ventricular wall thickness. LV EF is > THAN 75% The left ventricle is hyperdynamic. Doppler measurements suggest impaired left ventricular relaxation, which is associated with grade I/IV or mild diastolic dysfunction There is hyperdynamicc contractility of all cm. There is no thrombus. There is no ventricular septal defect visualized. The right ventricle is normal in size and function. The left atrial size is normal. The interatrial septum is intact with no evidence for an atrial septal defect. There is no evidence of mitral valve prolapse. There is no vegetation seen on the mitral valve. There is no mitral valve stenosis. There is a trace to mild amount of mitral regurgitation There is no LVOT obstruction. Although visuall no , there is Peak AV gradient of 19 mm of Hg , which most likely secondary to hyperdynamic LV contractilty. There is a trace amount of aortic regurgitation There is no tricuspid stenosis. There is a mild amount of tricuspid regurgitation There is mild pulmonary hypertension by echo RVSP is 37 mm to 42 mm of Hg with RA mean of 5 to 10. There is no pericardial effusion. MMode/2D Measurements \T\ Calculations RVDd: 2.2 cm LVIDd: 5.4 cm FS: 37.2 % Ao root diam: 3.0 cm IVSd: 0.87 cm LVIDs: 3.4 cm EDV(Teich): 143.3 ml LVPWd: 0.91 cm ESV(Teich): 47.8 ml Ao root area: 6.8 cm2 EF(Teich): 66.7 % LA dimension: 3.8 cm Doppler Measurements \T\ Calculations MV E max sara: MV P1/2t max sara: Ao V2 max: LV V1 max P.1 cm/sec 68.1 cm/sec 216.0 cm/sec 10.2 mmHg MV A max sara: MV P1/2t: 55.5 msec Ao max PG: LV V1 max: 93.8 cm/sec 18.7 mmHg 159.6 cm/sec MV E/A: 0.74 MVA(P1/2t): 4.0 cm2 MV dec slope: 359.7 cm/sec2 PA V2 max: TR max sara: RAP systole: 123.4 cm/sec 278.9 cm/sec 10.0 mmHg PA max PG: TR max P.1 mmHg 6.1 mmHg RVSP(TR): 41.1 mmHg Left Ventricle The left ventricle is normal in size. There is normal left ventricular wall thickness. LV EF is > THAN 75%. The left ventricle is hyperdynamic. There is hyperdynamicc contractility of all cm. Doppler measurements suggest impaired left ventricular relaxation, which is associated with grade I/IV or mild diastolic dysfunction. There is no thrombus. There is no ventricular septal defect visualized. Right Ventricle The right ventricle is normal in size and function. Atria The right atrium is normal. The left atrial size is normal. The interatrial septum is intact with no evidence for an atrial septal defect. Mitral Valve There is no evidence of mitral valve prolapse. There is no vegetation seen on the mitral valve. There is no mitral valve stenosis. There is a trace to mild amount of mitral regurgitation. Aortic Valve The aortic valve is trileaflet. The aortic valve opens well. There is no aortic valvular vegetation. There is no LVOT obstruction. Although visuall no , there is Peak AV gradient of 19 mm of Hg , which most likely secondary to hyperdynamic LV contractilty. There is a trace amount of aortic regurgitation. Tricuspid Valve There is no tricuspid stenosis. There is a mild amount of tricuspid regurgitation. There is mild pulmonary hypertension by echo. RVSP is 37 mm to 42 mm of Hg with RA mean of 5 to 10. Pulmonic Valve There is no pulmonic valvular stenosis. There is no pulmonic valvular regurgitation. Great Vessels The aortic root is normal size. Effusions There is no pericardial effusion. : GEN CABA > Olive Shipman
[2016-09-03 20:56] LABS: APPEARANCE,URINE SLIGHTLY-CLOUDY; BILIRUBIN,URINE NEGATIVE (NEGATIVE); GLUCOSE, URINE NEGATIVE (NEGATIVE); KETONES,URINE NEGATIVE (NEGATIVE); LEUKOCYTE ESTERASE,URINE NEGATIVE (NEGATIVE); NITRITE,URINE NEGATIVE (NEGATIVE); PROTEIN,URINE NEGATIVE (NEGATIVE); URINE SPECIFIC GRAVITY 1.012; UROBILINOGEN,URINE NEGATIVE mg/dL (<2.0)
[2016-09-03] MEDS: TRAZODONE HCL 50 MG TABLET PO SCH (21:49)
[2016-09-04] MEDS: PIPERACILLIN SODIUM/TAZOBACTAM 4.5 GM in NORMAL SALINE 100 ML IV SCH ×5 (00:08→23:28)
[2016-09-04] MEDS: CLINDAMYCIN 900 MG/D5W RTU 50 ML IV SCH ×3 (05:07→21:25)
[2016-09-04 05:56] LABS: HEMATOCRIT 29.1 % (36.0-47.0); HEMOGLOBIN 9.6 g/dL (12.0-15.5); HGB HCT DIFFERENCE -0.3; MEAN CORPUSCULAR HEMOGLOBIN 25.6 pg (27.0-33.4); MEAN CORPUSCULAR HGB CONC 33.1 g/dL (32.0-36.0); MEAN CORPUSCULAR VOLUME 77 fl (80-97); RED BLOOD COUNT 3.77 10^6/uL (3.72-5.28); RED CELL DISTRIBUTION WIDTH 15.1 % (11.5-14.0)
[2016-09-04 06:07] LABS: ANION GAP 13 (5-19); BLOOD UREA NITROGEN 47 mg/dL (7-20); CALCIUM 7.9 mg/dL (8.4-10.2); CARBON DIOXIDE 24 mmol/L (22-30); CHLORIDE 105 mmol/L (98-107); CREATININE RESULT 1.41 mg/dL (0.52-1.25); GLUCOSE 125 mg/dL (75-110); SODIUM 141.7 mmol/L (137-145)
[2016-09-04 06:08] LABS: POTASSIUM 3.9 mmol/L (3.6-5.0)
[2016-09-04] MEDS: HEPARIN SOD (PORCINE) 5,000 UNIT/ML 1 ML SYRINGE SUBCUT SCH ×3 (06:26→21:26)
[2016-09-04 06:27] LABS: BAND NEUTROPHILS % (MANUAL) 4 % (3-5); BASOPHILS % (MANUAL) 0 % (0-2); EOSINOPHILS % (MANUAL) 0 % (0-6); LYMPHOCYTES % (MANUAL) 7 % (13-45); TOTAL CELLS COUNTED 100
[2016-09-04 06:30] LABS: ANISOCYTOSIS 1+; HYPOCHROMASIA 1+; MICROCYTOSIS SLIGHT; TOXIC GRANULATION 1+; TOXIC VACUOLATION PRESENT
[2016-09-04 06:31] LABS: WHITE BLOOD COUNT 34.5 10^3/uL (4.0-10.5)
[2016-09-04] MEDS: DAPTOMYCIN 500 MG in NORMAL SALINE 50 ML IV SCH (10:30)
[2016-09-04] MEDS: DOCUSATE SODIUM 100 MG CAPSULE PO SCH ×2 (10:31→17:43)
[2016-09-04] MEDS: FAMOTIDINE 20 MG TABLET PO SCH ×2 (10:34→17:45)
--- NOTE | 2016-09-04 14:03 | XCELERA REPORT ---
[address] [address] Lower Extremity Arterial Evaluation Name: ANGIE VUONG Age: 76 yrs Gender: Female : 1940 Patient Status: Inpatient Patient Location: [id number]\S\426\S\B Study Date: 09/04/2016 09:19 AM Procedure: A color flow and duplex scan of the lower extremity arteries was performed bilaterally with velocity and waveform anaylsis. Ankle brachial indicies performed. Reason For Study: ? insufficiency, pain Ordering Physician: YURIDIA MENDIOLA Performed By: Noa Pires Measurements and Calculations Right Left CHIEF [employer]W [employer]EDULER PSV 161.1 246.4 cm/sec Prox PFA PSV -148.5 -106.2 cm/sec Prox SFA PSV -164.2 183.7 cm/sec Mid SFA PSV -150.9 -251.4 cm/sec Dist SFA PSV -274.1 -220.0 cm/sec Dist Pop A PSV -144.1 -120.7 cm/sec Dist MIKEL PSV 150.1 191.7 cm/sec Dist GROCERY SPECIALIST PSV -102.2 176.0 cm/sec Chan Pedis PSV 114.4 132.0 cm/sec Right Side Arterial Evaluation Normal velocity, waveform and triphasic flow are present, in the Common Femoral artery. Biphasic with preserved velocity to the infrageniculate vessels. The ankle-brachial index not done due to patient discomfort, refusal. 0-19 % stenosis is noted at the Femoral artery. Left Side Arterial Evaluation Normal velocity, waveform and triphasic flow are present, in the Common Femoral artery. Biphasic with preserved velocity to the infrageniculate vessels. The ankle-brachial index not done due to patient discomfort, refusal. 0-19 % stenosis is noted at the Femoral artery. Interpretation Summary Mild hemodynamically significant lesions in the bilateral lower extremities, on duplex imaging, at rest. : YURIDIA MENDIOLA > Eldon Watts
--- NOTE | 2016-09-04 14:23 | PDOC PROGRESS REPORT ---
Subjective Progress Note for:: 09/04/16 Subjective:: Patient seen on morning rounds. She is resting in bed with her legs elevated. She has bilateral lower extremity edema, redness both lower extremities now, and flaking skin. She has blistered area of the left lower extremity, for skin has self exfoliated. She denies any fever or chills. She denies any shortness of breath, dyspnea or chest pain. She states swelling and redness have improved since yesterday. She states initially she did not have redness of the right lower extremity when she presented here. She complains of moderate pain in both legs She states prior to her admission she was able to ambulate without difficulty. Now it is difficult for her to stand and pivot to the bedside commode. She refused physical therapy this am. I reinforced her need to walk to improve venous return and wound healing. She was working part-time prior to her arrival here. She does admit to chronic venous insufficiency in both legs and intermittent swelling. Physical Exam Vital Signs: Temp Pulse Resp BP Pulse Ox 97.4 F 101 H 20 150/47 H 96 09/04/16 13:23 09/04/16 13:23 09/04/16 13:23 09/04/16 13:23 09/04/16 13:23 Intake & Output 09/03/16 09/04/16 09/05/16 06:59 06:59 06:59 Intake Total 1160 1660 Balance 1160 1660 Weight 105.8 kg General appearance: PRESENT: no acute distress, morbidly obese, well-developed, well-nourished Head exam: PRESENT: atraumatic, normocephalic Eye exam: PRESENT: conjunctiva pink, EOMI, PERRLA. ABSENT: scleral icterus Ear exam: PRESENT: normal external ear exam Mouth exam: PRESENT: moist, tongue midline Neck exam: ABSENT: carotid bruit, JVD, lymphadenopathy, thyromegaly Respiratory exam: PRESENT: clear to auscultation morales. ABSENT: rales, rhonchi, wheezes Cardiovascular exam: PRESENT: RRR. ABSENT: diastolic murmur, rubs, systolic murmur Pulses: PRESENT: normal carotid pulses, normal radial pulses Vascular exam: PRESENT: normal capillary refill GI/Abdominal exam: PRESENT: ascites Extremities exam: PRESENT: calf tenderness, tenderness, +2 edema - + 2 edema of right lower leg, + 3 left lower leg, other Musculoskeletal exam: PRESENT: ambulatory Neurological exam: PRESENT: alert, awake, oriented to person, oriented to place , oriented to time, oriented to situation, CN II-XII grossly intact. ABSENT: motor sensory deficit Psychiatric exam: PRESENT: appropriate affect, normal mood. ABSENT: homicidal ideation, suicidal ideation Skin exam: PRESENT: erythema - Bilateral lower extremities much improved since yesterday, skin tears, vesicles, warm Results Laboratory Results: 09/04/16 05:34 09/04/16 05:34 09/03/16 09/04/16 09/04/16 20:30 05:34 05:34 WBC 34.5 H* RBC 3.77 Hgb 9.6 L Hct 29.1 L MCV 77 L MCH 25.6 L MCHC 33.1 RDW 15.1 H Plt Count 394 Seg Neutrophils % Not Reportable Lymphocytes % Not Reportable Monocytes % Not Reportable Eosinophils % Not Reportable Basophils % Not Reportable Absolute Neutrophils Not Reportable Absolute Lymphocytes Not Reportable Absolute Monocytes Not Reportable Absolute Eosinophils Not Reportable Absolute Basophils Not Reportable Sodium 141.7 Potassium 3.9 Chloride 105 Carbon Dioxide 24 Anion Gap 13 BUN 47 H Creatinine 1.41 H Est GFR ( Amer) 44 L Est GFR (Non-Af Amer) 36 L Glucose 125 H Calcium 7.9 L Urine Color YELLOW Urine Appearance SLIGHTLY-CLOUDY Urine pH 5.0 Ur Specific [place] 1.012 Urine Protein NEGATIVE Urine Glucose (UA) NEGATIVE Urine Ketones NEGATIVE Urine Blood MODERATE H Urine Nitrite NEGATIVE Ur Leukocyte Esterase NEGATIVE Urine WBC (Auto) 4 Urine RBC (Auto) 5 09/03/16 19:33 Creatine Kinase 42 Impressions: Tibia/Fibula X-Ray 08/30/16 14:06 IMPRESSION: NEGATIVE STUDY OF THE LEFT TIBIA AND FIBULA. NO RADIOGRAPHIC EVIDENCE OF ACUTE INJURY. Foot X-Ray 08/30/16 14:16 IMPRESSION: NEGATIVE STUDY OF THE LEFT FOOT. NO RADIOGRAPHIC EVIDENCE OF ACUTE INJURY. Chest X-Ray 09/03/16 00:00 IMPRESSION: NO SIGNIFICANT RADIOGRAPHIC FINDING IN THE CHEST. Assessment & Plan - Diagnosis (1) Cellulitis Qualifiers: Site of cellulitis: extremity Site of cellulitis of extremity: lower extremity Laterality: left Qualified Code(s): L03.116 - Cellulitis of left lower limb Is this a current diagnosis for this admission?: YesPlan: Improvement in appearance of sialitis of bilateral lower extremity since yesterday. Her leukocytosis has dropped 10,000-32,000. There is no further bandemia present time. Swelling has improved as well. Cultures continue to be pending. (2) UTI (urinary tract infection) Qualifiers: Urinary tract infection type: site unspecified Hematuria presence: with hematuria Qualified Code(s): N39.0 - Urinary tract infection, site not specified Is this a current diagnosis for this admission?: YesPlan: Patient currently has growing a e- coli and Proteus mirabilis. This will be covered by daptomycin. (3) Bandemia Is this a current diagnosis for this admission?: YesPlan: Likely secondary to worsening cellulitis despite current antibiotic treatment. We will therefore reculture patient and change antibiotic therapy. (4) Chronic venous stasis dermatitis Is this a current diagnosis for this admission?: YesPlan: We'll obtain venous ultrasound of right lower extremity to rule out DVT. (5) Hypertension Qualifiers: Hypertension type: essential hypertension Qualified Code(s): I10 - Essential (primary) hypertension Is this a current diagnosis for this admission?: YesPlan: Continue current medications. (6) Lower extremity edema Qualifiers: Laterality: bilateral Qualified Code(s): R60.0 - Localized edema Is this a current diagnosis for this admission?: YesPlan: This is worsened according to patient and nursing staff. Give 1 dose of IV Lasix obtain transthoracic echocardiogram - Time Time Spent with patient: 25-34 minutes Critical Time spent with patient: 15-24 minutes Medications reviewed and adjusted accordingly: Yes
[2016-09-04] MEDS ORDERED: LACTOBACILLUS ACIDOPHILUS 250 MG TAB PO ONE (14:30)
[2016-09-04] MEDS: OXYCODONE-ACETAMINOPHEN 5-325 MG TABLET PO PRN (16:03)
[2016-09-04] MEDS: POLYETHYLENE GLYCOL 3350 POWDER 17 GM/1 PACKET PO SCH (17:43)
[2016-09-04] MEDS: ONDANSETRON HCL INJ/PF 4 MG/2 ML SDV IV PRN (17:45)
[2016-09-04] MEDS: TRAZODONE HCL 50 MG TABLET PO SCH (21:25)
[2016-09-04] MEDS: LACTOBACILLUS ACIDOPHILUS 250 MG TAB PO SCH (21:26)
[2016-09-05] MEDS: ONDANSETRON HCL INJ/PF 4 MG/2 ML SDV IV PRN (05:16)
[2016-09-05] MEDS: FAMOTIDINE 20 MG TABLET PO SCH ×2 (05:16→17:18)
[2016-09-05] MEDS: CLINDAMYCIN 900 MG/D5W RTU 50 ML IV SCH ×3 (05:16→23:54)
[2016-09-05] MEDS: HEPARIN SOD (PORCINE) 5,000 UNIT/ML 1 ML SYRINGE SUBCUT SCH ×3 (05:17→23:54)
[2016-09-05] MEDS: PIPERACILLIN SODIUM/TAZOBACTAM 4.5 GM in NORMAL SALINE 100 ML IV SCH ×3 (06:24→17:18)
[2016-09-05] MEDS: LACTOBACILLUS ACIDOPHILUS 250 MG TAB PO SCH ×2 (09:09→23:54)
[2016-09-05] MEDS: DOCUSATE SODIUM 100 MG CAPSULE PO SCH ×2 (09:09→17:21)
[2016-09-05] MEDS: OXYCODONE-ACETAMINOPHEN 5-325 MG TABLET PO PRN ×2 (09:10→17:21)
[2016-09-05] MEDS: HYDRALAZINE HCL INJ/PF 20 MG/1 ML SDV IV PRN (09:18)
[2016-09-05] MEDS: DAPTOMYCIN 500 MG in NORMAL SALINE 50 ML IV SCH (10:43)
[2016-09-05 11:17] LABS: HEMOGLOBIN 10.1 g/dL (12.0-15.5); HGB HCT DIFFERENCE 0.3; MEAN CORPUSCULAR HEMOGLOBIN 26.1 pg (27.0-33.4); MEAN CORPUSCULAR HGB CONC 33.6 g/dL (32.0-36.0); MEAN CORPUSCULAR VOLUME 78 fl (80-97); RED BLOOD COUNT 3.86 10^6/uL (3.72-5.28); RED CELL DISTRIBUTION WIDTH 15.6 % (11.5-14.0); WHITE BLOOD COUNT 24.3 10^3/uL (4.0-10.5)
[2016-09-05 12:02] LABS: BAND NEUTROPHILS % (MANUAL) 4 % (3-5); BASOPHILS % (MANUAL) 0 % (0-2); EOSINOPHILS % (MANUAL) 0 % (0-6); LYMPHOCYTES % (MANUAL) 9 % (13-45); TOTAL CELLS COUNTED 100
[2016-09-05 12:04] LABS: ANISOCYTOSIS SLIGHT; MICROCYTOSIS SLIGHT; TARGET CELLS SLIGHT; TOXIC GRANULATION 1+
[2016-09-05] MEDS: POLYETHYLENE GLYCOL 3350 POWDER 17 GM/1 PACKET PO SCH (17:21)
[2016-09-05] MEDS: TRAZODONE HCL 50 MG TABLET PO SCH (23:54)
[2016-09-06] MEDS: PIPERACILLIN SODIUM/TAZOBACTAM 4.5 GM in NORMAL SALINE 100 ML IV SCH ×4 (00:59→17:13)
[2016-09-06] MEDS: CLINDAMYCIN 900 MG/D5W RTU 50 ML IV SCH ×3 (06:12→21:47)
[2016-09-06] MEDS: FAMOTIDINE 20 MG TABLET PO SCH ×2 (06:51→17:13)
[2016-09-06] MEDS: HEPARIN SOD (PORCINE) 5,000 UNIT/ML 1 ML SYRINGE SUBCUT SCH ×3 (06:51→21:47)
[2016-09-06] MEDS: OXYCODONE-ACETAMINOPHEN 5-325 MG TABLET PO PRN (08:37)
[2016-09-06 09:10] LABS: HEMATOCRIT 30.7 % (36.0-47.0); HEMOGLOBIN 10.1 g/dL (12.0-15.5); HGB HCT DIFFERENCE -0.4; MEAN CORPUSCULAR HEMOGLOBIN 25.7 pg (27.0-33.4); MEAN CORPUSCULAR HGB CONC 32.8 g/dL (32.0-36.0); MEAN CORPUSCULAR VOLUME 78 fl (80-97); RED BLOOD COUNT 3.93 10^6/uL (3.72-5.28); RED CELL DISTRIBUTION WIDTH 14.9 % (11.5-14.0); WHITE BLOOD COUNT 18.7 10^3/uL (4.0-10.5)
[2016-09-06 09:41] LABS: BAND NEUTROPHILS % (MANUAL) 2 % (3-5); BASOPHILS % (MANUAL) 0 % (0-2); EOSINOPHILS % (MANUAL) 1 % (0-6); LYMPHOCYTES % (MANUAL) 18 % (13-45); TOTAL CELLS COUNTED 100
[2016-09-06 09:42] LABS: HYPOCHROMASIA SLIGHT; MICROCYTOSIS SLIGHT; TOXIC GRANULATION 1+
[2016-09-06] MEDS: DAPTOMYCIN 500 MG in NORMAL SALINE 50 ML IV SCH (09:46)
[2016-09-06] MEDS: AMLODIPINE BESYLATE 5 MG TABLET PO SCH ×2 (09:48→21:47)
[2016-09-06] MEDS: LACTOBACILLUS ACIDOPHILUS 250 MG TAB PO SCH ×2 (09:50→21:47)
[2016-09-06] MEDS: DOCUSATE SODIUM 100 MG CAPSULE PO SCH ×2 (09:51→17:18)
--- NOTE | 2016-09-06 13:24 | PDOC PROGRESS REPORT ---
Subjective Progress Note for:: 09/05/16 Subjective:: Patient seen on morning rounds. She is resting in bed with her legs elevated. She has bilateral lower extremity edema, redness both lower extremities now, and flaking skin. She has blistered area of the left lower extremity, for skin has self exfoliated. She denies any fever or chills. She denies any shortness of breath, dyspnea or chest pain. She states swelling and redness have improved since yesterday. She states initially she did not have redness of the right lower extremity when she presented here. She complains of moderate pain in both legs She states prior to her admission she was able to ambulate without difficulty. Now it is difficult for her to stand and pivot to the bedside commode. She is improving with physical therapy. She was working part- time prior to her arrival here. She does admit to chronic venous insufficiency in both legs and intermittent swelling. Physical Exam Vital Signs: Temp Pulse Resp BP Pulse Ox 97.8 F 94 14 183/72 H 98 09/06/16 12:00 09/06/16 12:00 09/06/16 12:00 09/06/16 12:00 09/06/16 12:00 Intake & Output 09/05/16 09/06/16 09/07/16 06:59 06:59 06:59 Intake Total 1710 1000 Output Total 550 Balance 1710 450 Weight 106.2 kg 106.5 kg General appearance: PRESENT: no acute distress, morbidly obese, well-developed, well-nourished Head exam: PRESENT: atraumatic, normocephalic Eye exam: PRESENT: conjunctiva pink, EOMI, PERRLA. ABSENT: scleral icterus Mouth exam: PRESENT: moist, tongue midline Neck exam: ABSENT: carotid bruit, JVD, lymphadenopathy, thyromegaly Respiratory exam: PRESENT: clear to auscultation morales. ABSENT: rales, rhonchi, wheezes Cardiovascular exam: PRESENT: RRR. ABSENT: diastolic murmur, rubs, systolic murmur Pulses: PRESENT: normal dorsalis pedis pul Vascular exam: PRESENT: normal capillary refill GI/Abdominal exam: PRESENT: normal bowel sounds, soft. ABSENT: distended, guarding, mass, organolmegaly, rebound, tenderness Extremities exam: PRESENT: calf tenderness, +1 edema - left lower ext,, +2 edema , other - erythma, blistering and peeling of bilateral lower ext left greater than right Musculoskeletal exam: PRESENT: ambulatory, tenderness, other Neurological exam: PRESENT: alert, awake, oriented to person, oriented to place , oriented to time, oriented to situation, CN II-XII grossly intact. ABSENT: motor sensory deficit Psychiatric exam: PRESENT: appropriate affect, normal mood. ABSENT: homicidal ideation, suicidal ideation Skin exam: PRESENT: dry, intact, warm. ABSENT: cyanosis, rash Results Laboratory Results: 09/06/16 08:46 09/04/16 05:34 09/06/16 08:46 WBC 18.7 H RBC 3.93 Hgb 10.1 L Hct 30.7 L MCV 78 L MCH 25.7 L MCHC 32.8 RDW 14.9 H Plt Count 390 Seg Neutrophils % Not Reportable Lymphocytes % Not Reportable Monocytes % Not Reportable Eosinophils % Not Reportable Basophils % Not Reportable Absolute Neutrophils Not Reportable Absolute Lymphocytes Not Reportable Absolute Monocytes Not Reportable Absolute Eosinophils Not Reportable Absolute Basophils Not Reportable 09/03/16 19:33 Creatine Kinase 42 Impressions: Tibia/Fibula X-Ray 08/30/16 14:06 IMPRESSION: NEGATIVE STUDY OF THE LEFT TIBIA AND FIBULA. NO RADIOGRAPHIC EVIDENCE OF ACUTE INJURY. Foot X-Ray 08/30/16 14:16 IMPRESSION: NEGATIVE STUDY OF THE LEFT FOOT. NO RADIOGRAPHIC EVIDENCE OF ACUTE INJURY. Chest X-Ray 09/03/16 00:00 IMPRESSION: NO SIGNIFICANT RADIOGRAPHIC FINDING IN THE CHEST. Assessment & Plan - Diagnosis (1) Cellulitis Qualifiers: Site of cellulitis: extremity Site of cellulitis of extremity: lower extremity Laterality: left Qualified Code(s): L03.116 - Cellulitis of left lower limb Is this a current diagnosis for this admission?: YesPlan: Improvement in appearance of cellulitis of bilateral lower extremity since yesterday. Her leukocytosis has dropped 18k. There is no further bandemia present time. Swelling has improved as well. Cultures continue to be negative. (2) UTI (urinary tract infection) Qualifiers: Urinary tract infection type: site unspecified Hematuria presence: with hematuria Qualified Code(s): N39.0 - Urinary tract infection, site not specified Is this a current diagnosis for this admission?: YesPlan: Patient currently has growing a e- coli and Proteus mirabilis. This will be covered by daptomycin. (3) Bandemia Is this a current diagnosis for this admission?: YesPlan: resolved (4) Chronic venous stasis dermatitis Is this a current diagnosis for this admission?: YesPlan: We'll obtain venous ultrasound of right lower extremity to rule out DVT. (5) Hypertension Qualifiers: Hypertension type: essential hypertension Qualified Code(s): I10 - Essential (primary) hypertension Is this a current diagnosis for this admission?: YesPlan: Continue current medications. (6) Lower extremity edema Qualifiers: Laterality: bilateral Qualified Code(s): R60.0 - Localized edema Is this a current diagnosis for this admission?: YesPlan: Improving - Time Time Spent with patient: 25-34 minutes Critical Time spent with patient: 15-24 minutes Medications reviewed and adjusted accordingly: Yes Anticipated discharge: Home with Homehealth
--- NOTE | 2016-09-06 13:31 | PDOC PROGRESS REPORT ---
Subjective Progress Note for:: 09/06/16 Subjective:: Patient seen on morning rounds. She is resting in bed with her legs elevated. She has bilateral lower extremity edema, redness both lower extremities now, and flaking skin. She has blistered area of the left lower extremity, for skin has self exfoliated. She denies any fever or chills. She denies any shortness of breath, dyspnea or chest pain. She states swelling and redness have improved since yesterday. She states initially she did not have redness of the right lower extremity when she presented here. She complains of moderate pain in both legs She states prior to her admission she was able to ambulate without difficulty. Now it is difficult for her to stand and pivot to the bedside commode. She is improving with physical therapy. She was working part- time prior to her arrival here. She does admit to chronic venous insufficiency in both legs and intermittent swelling. Physical Exam Vital Signs: Temp Pulse Resp BP Pulse Ox 97.8 F 94 14 183/72 H 98 09/06/16 12:00 09/06/16 12:00 09/06/16 12:00 09/06/16 12:00 09/06/16 12:00 Intake & Output 09/05/16 09/06/16 09/07/16 06:59 06:59 06:59 Intake Total 1710 1000 Output Total 550 Balance 1710 450 Weight 106.2 kg 106.5 kg General appearance: PRESENT: no acute distress, well-developed, well-nourished Head exam: PRESENT: atraumatic, normocephalic Eye exam: PRESENT: conjunctiva pink, EOMI, PERRLA. ABSENT: scleral icterus Ear exam: PRESENT: normal external ear exam Mouth exam: PRESENT: moist, tongue midline Neck exam: ABSENT: carotid bruit, JVD, lymphadenopathy, thyromegaly Respiratory exam: PRESENT: clear to auscultation morales. ABSENT: rales, rhonchi, wheezes Cardiovascular exam: PRESENT: RRR. ABSENT: diastolic murmur, rubs, systolic murmur Pulses: PRESENT: normal dorsalis pedis pul Vascular exam: PRESENT: normal capillary refill GI/Abdominal exam: PRESENT: normal bowel sounds, soft. ABSENT: distended, guarding, mass, organolmegaly, rebound, tenderness Rectal exam: PRESENT: deferred Extremities exam: PRESENT: full ROM, tenderness - erythema, +1 edema, +2 edema. ABSENT: calf tenderness, clubbing, pedal edema Neurological exam: PRESENT: alert, awake, oriented to person, oriented to place , oriented to time, oriented to situation, CN II-XII grossly intact. ABSENT: motor sensory deficit Psychiatric exam: PRESENT: appropriate affect, normal mood. ABSENT: homicidal ideation, suicidal ideation Skin exam: PRESENT: dry, intact, warm. ABSENT: cyanosis, rash Results Laboratory Results: 09/06/16 08:46 09/04/16 05:34 09/06/16 08:46 WBC 18.7 H RBC 3.93 Hgb 10.1 L Hct 30.7 L MCV 78 L MCH 25.7 L MCHC 32.8 RDW 14.9 H Plt Count 390 Seg Neutrophils % Not Reportable Lymphocytes % Not Reportable Monocytes % Not Reportable Eosinophils % Not Reportable Basophils % Not Reportable Absolute Neutrophils Not Reportable Absolute Lymphocytes Not Reportable Absolute Monocytes Not Reportable Absolute Eosinophils Not Reportable Absolute Basophils Not Reportable 09/03/16 14:30 Leg - Cellulitis Gram Stain - Final 09/03/16 14:30 Leg - Cellulitis Wound Culture - Final NO GROWTH 3 DAYS 09/03/16 19:33 Creatine Kinase 42 Impressions: Tibia/Fibula X-Ray 08/30/16 14:06 IMPRESSION: NEGATIVE STUDY OF THE LEFT TIBIA AND FIBULA. NO RADIOGRAPHIC EVIDENCE OF ACUTE INJURY. Foot X-Ray 08/30/16 14:16 IMPRESSION: NEGATIVE STUDY OF THE LEFT FOOT. NO RADIOGRAPHIC EVIDENCE OF ACUTE INJURY. Chest X-Ray 09/03/16 00:00 IMPRESSION: NO SIGNIFICANT RADIOGRAPHIC FINDING IN THE CHEST. Assessment & Plan - Diagnosis (1) Cellulitis Qualifiers: Site of cellulitis: extremity Site of cellulitis of extremity: lower extremity Laterality: left Qualified Code(s): L03.116 - Cellulitis of left lower limb Is this a current diagnosis for this admission?: YesPlan: Improvement in appearance of cellulitis of bilateral lower extremity since yesterday. Her leukocytosis has dropped 18k. There is no further bandemia present time. Swelling has improved as well. Cultures continue to be negative. (2) UTI (urinary tract infection) Qualifiers: Urinary tract infection type: site unspecified Hematuria presence: with hematuria Qualified Code(s): N39.0 - Urinary tract infection, site not specified Is this a current diagnosis for this admission?: YesPlan: Patient currently has growing a e- coli and Proteus mirabilis. This will be covered by daptomycin. (3) Bandemia Is this a current diagnosis for this admission?: YesPlan: resolved (4) Chronic venous stasis dermatitis Is this a current diagnosis for this admission?: YesPlan: We'll obtain venous ultrasound of right lower extremity to rule out DVT. (5) Hypertension Qualifiers: Hypertension type: essential hypertension Qualified Code(s): I10 - Essential (primary) hypertension Is this a current diagnosis for this admission?: YesPlan: Continue current medications. (6) Lower extremity edema Qualifiers: Laterality: bilateral Qualified Code(s): R60.0 - Localized edema Is this a current diagnosis for this admission?: YesPlan: Improving - Time Time Spent with patient: 25-34 minutes Critical Time spent with patient: 15-24 minutes Medications reviewed and adjusted accordingly: Yes Anticipated discharge: Home with Homehealth - Inpatient Certification Based on my medical assessment, after consideration of the patient's comorbidities, presenting symptoms, or acuity I expect that the services needed warrant INPATIENT care.: Yes I certify that my determination is in accordance with my understanding of Medicare's requirements for reasonable and necessary INPATIENT services [42 CFR 412.3e].: Yes
[2016-09-06] MEDS: POLYETHYLENE GLYCOL 3350 POWDER 17 GM/1 PACKET PO SCH (17:18)
[2016-09-06] MEDS: TRAZODONE HCL 50 MG TABLET PO SCH (21:48)
[2016-09-07] MEDS: PIPERACILLIN SODIUM/TAZOBACTAM 4.5 GM in NORMAL SALINE 100 ML IV SCH ×4 (00:58→17:08)
[2016-09-07] MEDS: FAMOTIDINE 20 MG TABLET PO SCH ×2 (06:51→17:08)
[2016-09-07] MEDS: HEPARIN SOD (PORCINE) 5,000 UNIT/ML 1 ML SYRINGE SUBCUT SCH ×3 (06:51→21:27)
[2016-09-07] MEDS: CLINDAMYCIN 900 MG/D5W RTU 50 ML IV SCH (06:51)
[2016-09-07] MEDS: LACTOBACILLUS ACIDOPHILUS 250 MG TAB PO SCH ×2 (09:09→21:27)
[2016-09-07] MEDS: AMLODIPINE BESYLATE 5 MG TABLET PO SCH ×2 (09:10→21:27)
[2016-09-07] MEDS: DOCUSATE SODIUM 100 MG CAPSULE PO SCH ×2 (09:38→17:13)
[2016-09-07] MEDS ORDERED: ONDANSETRON 4 MG TAB.RAPDIS PO PRN (11:24)
[2016-09-07] MEDS ORDERED: LACTOBACILLUS ACIDOPHILUS 250 MG TAB PO SCH (11:30)
--- NOTE | 2016-09-07 11:32 | PDOC PROGRESS REPORT ---
Subjective Progress Note for:: 09/07/16 Subjective:: The patient was seen earlier today on rounds. The patient complains of bilateral lower extremity pain. The patient denies any nausea, vomiting, diarrhea, shortness of breath, dizziness, chest pain, heart palpitations, fevers , or chills. The patient has remained afebrile. Blood pressures have been elevated but stable. When prompted the patient voices no other concerns at this time. Review of systems: The rest of the review of systems is negative. Physical Exam Vital Signs: Temp Pulse Resp BP Pulse Ox 97.5 F 91 18 160/78 H 97 09/07/16 07:15 09/07/16 07:15 09/07/16 07:15 09/07/16 07:15 09/07/16 07:15 Intake & Output 09/05/16 09/06/16 09/07/16 23:59 23:59 23:59 Intake Total 1240 1270 580 Output Total 550 Balance 690 1270 580 Weight 106.2 kg 106.5 kg 103.9 kg General appearance: PRESENT: no acute distress, cooperative, disheveled Head exam: PRESENT: atraumatic, normocephalic Eye exam: PRESENT: conjunctiva pink, EOMI, PERRLA. ABSENT: scleral icterus Ear exam: PRESENT: normal external ear exam Mouth exam: PRESENT: moist, tongue midline Neck exam: ABSENT: carotid bruit, JVD, lymphadenopathy, thyromegaly Respiratory exam: PRESENT: clear to auscultation morales. ABSENT: rales, rhonchi, wheezes Cardiovascular exam: PRESENT: RRR. ABSENT: diastolic murmur, rubs, systolic murmur Pulses: PRESENT: normal dorsalis pedis pul Vascular exam: PRESENT: normal capillary refill GI/Abdominal exam: PRESENT: normal bowel sounds, soft. ABSENT: distended, guarding, mass, organolmegaly, rebound, tenderness Rectal exam: PRESENT: deferred Extremities exam: PRESENT: full ROM, tenderness, +1 edema. ABSENT: calf tenderness, clubbing, pedal edema Neurological exam: PRESENT: alert, awake, oriented to person, oriented to place , oriented to time, oriented to situation, CN II-XII grossly intact. ABSENT: motor sensory deficit Psychiatric exam: PRESENT: appropriate affect, normal mood. ABSENT: homicidal ideation, suicidal ideation Skin exam: PRESENT: dry, intact, vesicles - Left lower extremity, warm. ABSENT : cyanosis, rash Results Laboratory Results: 09/06/16 08:46 09/04/16 05:34 09/03/16 14:30 Leg - Cellulitis Gram Stain - Final 09/03/16 14:30 Leg - Cellulitis Wound Culture - Final NO GROWTH 3 DAYS 09/03/16 19:33 Creatine Kinase 42 Impressions: Tibia/Fibula X-Ray 08/30/16 14:06 IMPRESSION: NEGATIVE STUDY OF THE LEFT TIBIA AND FIBULA. NO RADIOGRAPHIC EVIDENCE OF ACUTE INJURY. Foot X-Ray 08/30/16 14:16 IMPRESSION: NEGATIVE STUDY OF THE LEFT FOOT. NO RADIOGRAPHIC EVIDENCE OF ACUTE INJURY. Chest X-Ray 09/03/16 00:00 IMPRESSION: NO SIGNIFICANT RADIOGRAPHIC FINDING IN THE CHEST. Assessment & Plan - Diagnosis (1) Cellulitis Qualifiers: Site of cellulitis: extremity Site of cellulitis of extremity: lower extremity Laterality: left Qualified Code(s): L03.116 - Cellulitis of left lower limb Is this a current diagnosis for this admission?: YesPlan: The patient has significant area of blistering. Will consult surgery for evaluation. Will continue antibiotic coverage. Arterial venous Dopplers have been completed. (2) Chronic venous stasis dermatitis Is this a current diagnosis for this admission?: Yes (3) Ambulatory dysfunction Is this a current diagnosis for this admission?: Yes (4) Hypertension Qualifiers: Hypertension type: essential hypertension Qualified Code(s): I10 - Essential (primary) hypertension Is this a current diagnosis for this admission?: YesPlan: The pressure remains significantly elevated will continue current blood pressure medications and add lisinopril for cardiorenal protection. (5) Lower extremity edema Qualifiers: Laterality: bilateral Qualified Code(s): R60.0 - Localized edema Is this a current diagnosis for this admission?: Yes (6) UTI (urinary tract infection) Qualifiers: Urinary tract infection type: site unspecified Hematuria presence: with hematuria Qualified Code(s): N39.0 - Urinary tract infection, site not specified Is this a current diagnosis for this admission?: YesPlan: Polymicrobial. Sensitive to Zosyn. 09/02/16 05:59 WBC 47.1 H* 08/30/16 13:30 Urine Culture - Final Clean Catch Midstream Proteus Mirabilis Escherichia Coli (7) Chronic kidney disease, stage 3 Is this a current diagnosis for this admission?: YesPlan: The patient's baseline creatinine is most likely in the 1.4 range. Will follow up renal function and potassium given the patient will be started on IVÁN. (8) SIRS (systemic inflammatory response syndrome) Is this a current diagnosis for this admission?: YesPlan: Immediately improved - Time Time Spent with patient: 35 or more minutes Medications reviewed and adjusted accordingly: Yes
[2016-09-07] MEDS: TRAMADOL HCL 50 MG TABLET PO PRN ×2 (11:44→21:27)
[2016-09-07] MEDS ORDERED: LISINOPRIL 10 MG TABLET PO ONE (12:00)
[2016-09-07] MEDS: POLYETHYLENE GLYCOL 3350 POWDER 17 GM/1 PACKET PO SCH (17:13)
[2016-09-07] MEDS: LISINOPRIL 10 MG TABLET PO SCH (21:27)
[2016-09-07] MEDS: TRAZODONE HCL 50 MG TABLET PO SCH (21:27)
[2016-09-08] MEDS: PIPERACILLIN SODIUM/TAZOBACTAM 4.5 GM in NORMAL SALINE 100 ML IV SCH ×5 (00:14→23:48)
[2016-09-08] MEDS: HEPARIN SOD (PORCINE) 5,000 UNIT/ML 1 ML SYRINGE SUBCUT SCH ×3 (05:45→21:40)
[2016-09-08] MEDS: TRAMADOL HCL 50 MG TABLET PO PRN ×2 (05:45→21:51)
[2016-09-08] MEDS: FAMOTIDINE 20 MG TABLET PO SCH ×2 (05:45→17:39)
[2016-09-08] MEDS: DOCUSATE SODIUM 100 MG CAPSULE PO SCH ×2 (10:24→17:34)
[2016-09-08] MEDS: LACTOBACILLUS ACIDOPHILUS 250 MG TAB PO SCH ×2 (10:24→21:41)
[2016-09-08] MEDS: AMLODIPINE BESYLATE 5 MG TABLET PO SCH ×2 (10:24→21:44)
[2016-09-08] MEDS: LISINOPRIL 10 MG TABLET PO SCH ×2 (10:24→21:44)
--- NOTE | 2016-09-08 10:35 | PDOC PROGRESS REPORT ---
Subjective Progress Note for:: 09/08/16 Subjective:: The patient was seen earlier today on rounds. The patient complains of bilateral lower extremity pain but states that current medication does control this. Does admit to nausea but it has improved. The patient denies any vomiting, diarrhea, shortness of breath, dizziness, chest pain, heart palpitations, fevers, or chills. The patient has remained afebrile. Blood pressures have been elevated but stable. When prompted the patient voices no other concerns at this time. Review of systems: The rest of the review of systems is negative. Physical Exam Vital Signs: Temp Pulse Resp BP Pulse Ox 99.3 F 87 16 183/74 H 98 09/08/16 07:46 09/08/16 07:46 09/08/16 07:46 09/08/16 07:46 09/08/16 07:46 Intake & Output 09/06/16 09/07/16 09/08/16 23:59 23:59 23:59 Intake Total 1270 1190 540 Output Total 600 Balance 1270 590 540 Weight 106.5 kg 103.9 kg 104.4 kg General appearance: PRESENT: no acute distress, cooperative, disheveled Head exam: PRESENT: atraumatic, normocephalic Eye exam: PRESENT: conjunctiva pink, EOMI, PERRLA. ABSENT: scleral icterus Ear exam: PRESENT: normal external ear exam Mouth exam: PRESENT: moist, tongue midline Neck exam: ABSENT: carotid bruit, JVD, lymphadenopathy, thyromegaly Respiratory exam: PRESENT: clear to auscultation morales. ABSENT: rales, rhonchi, wheezes Cardiovascular exam: PRESENT: RRR. ABSENT: diastolic murmur, rubs, systolic murmur Pulses: PRESENT: normal dorsalis pedis pul Vascular exam: PRESENT: normal capillary refill GI/Abdominal exam: PRESENT: normal bowel sounds, soft. ABSENT: distended, guarding, mass, organolmegaly, rebound, tenderness Rectal exam: PRESENT: deferred Extremities exam: PRESENT: full ROM, tenderness, +1 edema. ABSENT: calf tenderness, clubbing, pedal edema Neurological exam: PRESENT: alert, awake, oriented to person, oriented to place , oriented to time, oriented to situation, CN II-XII grossly intact. ABSENT: motor sensory deficit Psychiatric exam: PRESENT: appropriate affect, normal mood. ABSENT: homicidal ideation, suicidal ideation Skin exam: PRESENT: dry, intact, vesicles - Left lower extremity, warm. ABSENT : cyanosis, rash Results Laboratory Results: 09/06/16 08:46 09/04/16 05:34 09/03/16 19:33 Creatine Kinase 42 Impressions: Tibia/Fibula X-Ray 08/30/16 14:06 IMPRESSION: NEGATIVE STUDY OF THE LEFT TIBIA AND FIBULA. NO RADIOGRAPHIC EVIDENCE OF ACUTE INJURY. Foot X-Ray 08/30/16 14:16 IMPRESSION: NEGATIVE STUDY OF THE LEFT FOOT. NO RADIOGRAPHIC EVIDENCE OF ACUTE INJURY. Chest X-Ray 09/03/16 00:00 IMPRESSION: NO SIGNIFICANT RADIOGRAPHIC FINDING IN THE CHEST. Assessment & Plan - Diagnosis (1) Cellulitis Qualifiers: Site of cellulitis: extremity Site of cellulitis of extremity: lower extremity Laterality: left Qualified Code(s): L03.116 - Cellulitis of left lower limb Is this a current diagnosis for this admission?: YesPlan: The patient has significant area of blistering. Will consult surgery for evaluation. Will continue antibiotic coverage. Arterial venous Dopplers have been completed. (2) Chronic venous stasis dermatitis Is this a current diagnosis for this admission?: Yes (3) Ambulatory dysfunction Is this a current diagnosis for this admission?: Yes (4) Hypertension Qualifiers: Hypertension type: essential hypertension Qualified Code(s): I10 - Essential (primary) hypertension Is this a current diagnosis for this admission?: YesPlan: The pressure remains significantly elevated will continue current blood pressure medications and added lisinopril for cardiorenal protection. (5) UTI (urinary tract infection) Qualifiers: Urinary tract infection type: site unspecified Hematuria presence: with hematuria Qualified Code(s): N39.0 - Urinary tract infection, site not specified Is this a current diagnosis for this admission?: YesPlan: Polymicrobial. Sensitive to Zosyn. 09/02/16 05:59 WBC 47.1 H* 08/30/16 13:30 Urine Culture - Final Clean Catch Midstream Proteus Mirabilis Escherichia Coli (6) Chronic kidney disease, stage 3 Is this a current diagnosis for this admission?: YesPlan: The patient's baseline creatinine is most likely in the 1.4 range. Will follow up renal function and potassium given the patient will be started on IVÁN. (7) SIRS (systemic inflammatory response syndrome) Is this a current diagnosis for this admission?: YesPlan: Immediately improved - Time Time Spent with patient: 25-34 minutes Medications reviewed and adjusted accordingly: Yes Within: within 24 hours, within 48 hours
[2016-09-08] MEDS: POLYETHYLENE GLYCOL 3350 POWDER 17 GM/1 PACKET PO SCH (17:34)
[2016-09-08] MEDS: TRAZODONE HCL 50 MG TABLET PO SCH (21:44)
[2016-09-09] MEDS: HEPARIN SOD (PORCINE) 5,000 UNIT/ML 1 ML SYRINGE SUBCUT SCH ×3 (05:30→21:25)
[2016-09-09] MEDS: HYDRALAZINE HCL INJ/PF 20 MG/1 ML SDV IV PRN (05:31)
[2016-09-09] MEDS: FAMOTIDINE 20 MG TABLET PO SCH ×2 (05:33→17:00)
[2016-09-09] MEDS: PIPERACILLIN SODIUM/TAZOBACTAM 4.5 GM in NORMAL SALINE 100 ML IV SCH ×3 (05:36→17:00)
[2016-09-09 06:31] LABS: HEMATOCRIT 28.9 % (36.0-47.0); HEMOGLOBIN 9.7 g/dL (12.0-15.5); HGB HCT DIFFERENCE 0.2; MEAN CORPUSCULAR HEMOGLOBIN 26.3 pg (27.0-33.4); MEAN CORPUSCULAR HGB CONC 33.7 g/dL (32.0-36.0); MEAN CORPUSCULAR VOLUME 78 fl (80-97); RED CELL DISTRIBUTION WIDTH 15.2 % (11.5-14.0); WHITE BLOOD COUNT 10.9 10^3/uL (4.0-10.5)
[2016-09-09 06:48] LABS: ANION GAP 10 (5-19); BLOOD UREA NITROGEN 12 mg/dL (7-20); CARBON DIOXIDE 25 mmol/L (22-30); CHLORIDE 107 mmol/L (98-107); GLUCOSE 109 mg/dL (75-110); MAGNESIUM 1.9 mg/dL (1.6-2.3); POTASSIUM 3.9 mmol/L (3.6-5.0); SODIUM 142.4 mmol/L (137-145)
[2016-09-09] MEDS: LACTOBACILLUS ACIDOPHILUS 250 MG TAB PO SCH ×2 (09:16→21:25)
[2016-09-09] MEDS: AMLODIPINE BESYLATE 5 MG TABLET PO SCH ×2 (09:16→21:24)
[2016-09-09] MEDS: LISINOPRIL 10 MG TABLET PO SCH ×2 (09:16→21:23)
[2016-09-09] MEDS: DOCUSATE SODIUM 100 MG CAPSULE PO SCH ×2 (09:17→17:02)
[2016-09-09] MEDS: TRAMADOL HCL 50 MG TABLET PO PRN ×2 (09:22→21:24)
--- NOTE | 2016-09-09 11:25 | PDOC PROGRESS REPORT ---
Subjective Progress Note for:: 09/09/16 Subjective:: The patient was seen earlier today on rounds. The patient complains of bilateral lower extremity pain but states that current medication does control this. Does admit to nausea but it has improved. The patient denies any vomiting, diarrhea, shortness of breath, dizziness, chest pain, heart palpitations, fevers, or chills. The patient has remained afebrile. Blood pressures have been elevated but stable. When prompted the patient voices no other concerns at this time. Review of systems: The rest of the review of systems is negative. Physical Exam Vital Signs: Temp Pulse Resp BP Pulse Ox 98.8 F 101 H 18 169/61 H 98 09/09/16 08:29 09/09/16 08:29 09/09/16 08:29 09/09/16 08:29 09/09/16 08:29 Intake & Output 09/07/16 09/08/16 09/09/16 23:59 23:59 23:59 Intake Total 1190 2200 460 Output Total 600 Balance 590 2200 460 Weight 103.9 kg 104.4 kg 105.5 kg General appearance: PRESENT: no acute distress, cooperative, disheveled Head exam: PRESENT: atraumatic, normocephalic Eye exam: PRESENT: conjunctiva pink, EOMI, PERRLA. ABSENT: scleral icterus Ear exam: PRESENT: normal external ear exam Mouth exam: PRESENT: moist, tongue midline Neck exam: ABSENT: carotid bruit, JVD, lymphadenopathy, thyromegaly Respiratory exam: PRESENT: clear to auscultation morales. ABSENT: rales, rhonchi, wheezes Cardiovascular exam: PRESENT: RRR. ABSENT: diastolic murmur, rubs, systolic murmur Pulses: PRESENT: normal dorsalis pedis pul Vascular exam: PRESENT: normal capillary refill GI/Abdominal exam: PRESENT: normal bowel sounds, soft. ABSENT: distended, guarding, mass, organolmegaly, rebound, tenderness Rectal exam: PRESENT: deferred Extremities exam: PRESENT: full ROM, tenderness, +1 edema. ABSENT: calf tenderness, clubbing, pedal edema Neurological exam: PRESENT: alert, awake, oriented to person, oriented to place , oriented to time, oriented to situation, CN II-XII grossly intact. ABSENT: motor sensory deficit Psychiatric exam: PRESENT: appropriate affect, normal mood. ABSENT: homicidal ideation, suicidal ideation Skin exam: PRESENT: dry, intact, vesicles - Left lower extremity, warm. ABSENT : cyanosis, rash Results Laboratory Results: 09/09/16 06:08 09/09/16 06:08 09/09/16 09/09/16 06:08 06:08 WBC 10.9 H RBC 3.70 L Hgb 9.7 L Hct 28.9 L MCV 78 L MCH 26.3 L MCHC 33.7 RDW 15.2 H Plt Count 405 Sodium 142.4 Potassium 3.9 Chloride 107 Carbon Dioxide 25 Anion Gap 10 BUN 12 Creatinine 0.90 Est GFR ( Amer) > 60 Est GFR (Non-Af Amer) > 60 Glucose 109 Calcium 8.0 L Magnesium 1.9 09/03/16 19:33 Creatine Kinase 42 Impressions: Tibia/Fibula X-Ray 08/30/16 14:06 IMPRESSION: NEGATIVE STUDY OF THE LEFT TIBIA AND FIBULA. NO RADIOGRAPHIC EVIDENCE OF ACUTE INJURY. Foot X-Ray 08/30/16 14:16 IMPRESSION: NEGATIVE STUDY OF THE LEFT FOOT. NO RADIOGRAPHIC EVIDENCE OF ACUTE INJURY. Chest X-Ray 09/03/16 00:00 IMPRESSION: NO SIGNIFICANT RADIOGRAPHIC FINDING IN THE CHEST. Assessment & Plan - Diagnosis (1) Cellulitis Qualifiers: Site of cellulitis: extremity Site of cellulitis of extremity: lower extremity Laterality: left Qualified Code(s): L03.116 - Cellulitis of left lower limb Is this a current diagnosis for this admission?: YesPlan: The patient has significant area of blistering. Will consult surgery for evaluation. Will continue antibiotic coverage. Arterial venous Dopplers have been completed. (2) Chronic venous stasis dermatitis Is this a current diagnosis for this admission?: Yes (3) Ambulatory dysfunction Is this a current diagnosis for this admission?: Yes (4) Hypertension Qualifiers: Hypertension type: essential hypertension Qualified Code(s): I10 - Essential (primary) hypertension Is this a current diagnosis for this admission?: YesPlan: The pressure remains significantly elevated will continue current blood pressure medications and added lisinopril for cardiorenal protection. Will maximize existing therapies. (5) UTI (urinary tract infection) Qualifiers: Urinary tract infection type: site unspecified Hematuria presence: with hematuria Qualified Code(s): N39.0 - Urinary tract infection, site not specified Is this a current diagnosis for this admission?: YesPlan: Polymicrobial. Sensitive to Zosyn. 09/02/16 05:59 WBC 47.1 H* 08/30/16 13:30 Urine Culture - Final Clean Catch Midstream Proteus Mirabilis Escherichia Coli (6) Chronic kidney disease, stage 3 Is this a current diagnosis for this admission?: YesPlan: The patient's baseline creatinine is most likely in the 1.4 range. Will follow up renal function and potassium given the patient will be started on IVÁN. (7) SIRS (systemic inflammatory response syndrome) Is this a current diagnosis for this admission?: YesPlan: Immediately improved - Time Time Spent with patient: 25-34 minutes Medications reviewed and adjusted accordingly: Yes
[2016-09-09] MEDS ORDERED: LISINOPRIL 10 MG TABLET PO ONE (11:45)
[2016-09-09] MEDS: POLYETHYLENE GLYCOL 3350 POWDER 17 GM/1 PACKET PO SCH (17:02)
[2016-09-09] MEDS: TRAZODONE HCL 50 MG TABLET PO SCH (21:25)
--- NOTE | 2016-09-09 21:29 | PDOC CONSULTATION ---
Consultation Consult Date: 09/09/16 Attending physician:: DARRYL CRAIG MD Consult reason:: Cellulitis of the legs History of Present Illness Admission Date/PCP: 08/30/16 16:54 History of Present Illness: ANGIE VUONG is a 76 year old female with past medical history of untreated hypertension chronic lower extremity swelling presents to days after sustaining a fall with one-day history of left lower extremity pain and swelling. She states that she has never formally been diagnosed with chronic venous stasis however she has obvious exam findings consistent with this. Surgeons addendum: The patient was then [facility] for over a week and a half. She's been on intravenous antibiotics. She's had serial x- rays, and venous duplex studies which have been negative. The blood cell count has diminished from 41,000 has normalized. Patient states her legs feel better. Past Medical History Cardiac Medical History: Reports: Hypertension Past Surgical History Past Surgical History: Reports: Cholecystectomy Social History Lives with: Spouse/Significant other Smoking Status: Never Smoker Frequency of Alcohol Use: None Hx Recreational Drug Use: No Hx Prescription Drug Abuse: No - Advance Directive Resuscitation Status: Full Code Family History Family History: Reviewed & Not Pertinent Parental Family History Reviewed: Yes Children Family History Reviewed: Yes Sibling(s) Family History Reviewed.: Yes Medication/Allergy Home Medications: Ranitidine HCl [Zantac 75 mg Tablet] 75 mg PO DAILY 09/01/16 Allergies/Adverse Reactions: No Known Allergies Allergy (Verified 08/30/16 11:14) Physical Exam Vital Signs: Temp Pulse Resp BP Pulse Ox 98.6 F 89 20 175/76 H 97 09/09/16 14:25 09/09/16 14:25 09/09/16 14:25 09/09/16 14:25 09/09/16 14:25 Intake & Output 09/08/16 09/09/16 09/10/16 06:59 06:59 06:59 Intake Total 1150 2120 860 Output Total 600 600 Balance 550 2120 260 Weight 104.4 kg 105.5 kg General appearance: PRESENT: no acute distress Extremities exam: PRESENT: other - 5+ edema left lower extremity 3+ on the right ; extensive exfoliation in a circumferential fashion with a lot of dry flaky skin. All areas where the dermis has been denuded. There is no obvious foul smell. This a lot of dry serous drainage. All toes are intact. There are no krystal ulcers or lacerations. Results Laboratory Results: 09/09/16 06:08 09/09/16 06:08 09/09/16 09/09/16 06:08 06:08 WBC 10.9 H RBC 3.70 L Hgb 9.7 L Hct 28.9 L MCV 78 L MCH 26.3 L MCHC 33.7 RDW 15.2 H Plt Count 405 Sodium 142.4 Potassium 3.9 Chloride 107 Carbon Dioxide 25 Anion Gap 10 BUN 12 Creatinine 0.90 Est GFR ( Amer) > 60 Est GFR (Non-Af Amer) > 60 Glucose 109 Calcium 8.0 L Magnesium 1.9 09/03/16 19:33 Creatine Kinase 42 Impressions: Tibia/Fibula X-Ray 08/30/16 14:06 IMPRESSION: NEGATIVE STUDY OF THE LEFT TIBIA AND FIBULA. NO RADIOGRAPHIC EVIDENCE OF ACUTE INJURY. Foot X-Ray 08/30/16 14:16 IMPRESSION: NEGATIVE STUDY OF THE LEFT FOOT. NO RADIOGRAPHIC EVIDENCE OF ACUTE INJURY. Chest X-Ray 09/03/16 00:00 IMPRESSION: NO SIGNIFICANT RADIOGRAPHIC FINDING IN THE CHEST. Assessment & Plan - Diagnosis (1) Chronic venous stasis dermatitis Is this a current diagnosis for this admission?: YesPlan: 1. 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 Clearly however her clinical condition has improved since hospitalization is evidenced by her symptom improvement, and normalization of her white blood cell count. 2. I have debrided over the exfoliating skin, I have asked the nursing staff to wash the legs. I suggest we keep the legs elevated, higher than the heart. 2. Patient may benefit from medicated compression wraps, long-term compression therapy. Consult advanced wound Center
[2016-09-10] MEDS: PIPERACILLIN SODIUM/TAZOBACTAM 4.5 GM in NORMAL SALINE 100 ML IV SCH ×3 (00:56→12:34)
[2016-09-10] MEDS: HEPARIN SOD (PORCINE) 5,000 UNIT/ML 1 ML SYRINGE SUBCUT SCH ×3 (06:50→22:58)
[2016-09-10] MEDS: FAMOTIDINE 20 MG TABLET PO SCH ×2 (06:51→17:21)
--- NOTE | 2016-09-10 08:44 | PDOC PROGRESS REPORT ---
Subjective Progress Note for:: 09/10/16 Physical Exam Vital Signs: Temp Pulse Resp BP Pulse Ox 97.7 F 90 20 156/69 H 96 09/10/16 07:24 09/10/16 07:24 09/10/16 07:24 09/10/16 07:24 09/10/16 07:24 Intake & Output 09/09/16 09/10/16 09/11/16 06:59 06:59 06:59 Intake Total 2120 1495 Output Total 600 Balance 2120 895 Weight 105.5 kg 104.1 kg General appearance: PRESENT: no acute distress, well-developed, well-nourished Head exam: PRESENT: atraumatic, normocephalic Eye exam: PRESENT: conjunctiva pink, EOMI, PERRLA. ABSENT: scleral icterus Ear exam: PRESENT: normal external ear exam Mouth exam: PRESENT: moist, tongue midline Neck exam: ABSENT: carotid bruit, JVD, lymphadenopathy, thyromegaly Respiratory exam: PRESENT: clear to auscultation morales. ABSENT: rales, rhonchi, wheezes Cardiovascular exam: PRESENT: RRR. ABSENT: diastolic murmur, rubs, systolic murmur Pulses: PRESENT: normal dorsalis pedis pul Vascular exam: PRESENT: normal capillary refill GI/Abdominal exam: PRESENT: normal bowel sounds, soft. ABSENT: distended, guarding, mass, organolmegaly, rebound, tenderness Rectal exam: PRESENT: deferred Extremities exam: PRESENT: full ROM, +1 edema - less swelling and less inflammation. ABSENT: calf tenderness, clubbing, pedal edema Neurological exam: PRESENT: alert, awake, oriented to person, oriented to place , oriented to time, oriented to situation, CN II-XII grossly intact. ABSENT: motor sensory deficit Psychiatric exam: PRESENT: appropriate affect, normal mood. ABSENT: homicidal ideation, suicidal ideation Skin exam: PRESENT: dry, intact, warm. ABSENT: cyanosis, rash Results Laboratory Results: 09/09/16 06:08 09/09/16 06:08 09/03/16 19:33 Creatine Kinase 42 Impressions: Tibia/Fibula X-Ray 08/30/16 14:06 IMPRESSION: NEGATIVE STUDY OF THE LEFT TIBIA AND FIBULA. NO RADIOGRAPHIC EVIDENCE OF ACUTE INJURY. Foot X-Ray 08/30/16 14:16 IMPRESSION: NEGATIVE STUDY OF THE LEFT FOOT. NO RADIOGRAPHIC EVIDENCE OF ACUTE INJURY. Chest X-Ray 09/03/16 00:00 IMPRESSION: NO SIGNIFICANT RADIOGRAPHIC FINDING IN THE CHEST.
[2016-09-10] MEDS: AMLODIPINE BESYLATE 5 MG TABLET PO SCH ×2 (11:21→22:59)
[2016-09-10] MEDS: LACTOBACILLUS ACIDOPHILUS 250 MG TAB PO SCH ×2 (11:22→22:59)
[2016-09-10] MEDS: LISINOPRIL 10 MG TABLET PO SCH ×2 (11:22→22:59)
[2016-09-10] MEDS: DOCUSATE SODIUM 100 MG CAPSULE PO SCH ×2 (11:22→17:10)
--- NOTE | 2016-09-10 15:59 | PDOC PROGRESS REPORT ---
Subjective Progress Note for:: 09/10/16 Subjective:: The patient was seen earlier today on rounds. Does admit to nausea but it has improved. The patient denies any vomiting, shortness of breath, dizziness, chest pain, heart palpitations, fevers, or chills. Diarrhea has improved. The patient has remained afebrile. Blood pressures have been elevated but stable. When prompted the patient voices no other concerns at this time. Review of systems: The rest of the review of systems is negative. Physical Exam Vital Signs: Temp Pulse Resp BP Pulse Ox 97.7 F 90 20 156/69 H 96 09/10/16 07:24 09/10/16 07:24 09/10/16 07:24 09/10/16 07:24 09/10/16 07:24 Intake & Output 09/08/16 09/09/16 09/10/16 23:59 23:59 23:59 Intake Total 2200 1545 410 Output Total 600 Balance 2200 945 410 Weight 104.4 kg 105.5 kg 104.1 kg General appearance: PRESENT: no acute distress, cooperative, well-developed, well-nourished Head exam: PRESENT: atraumatic, normocephalic Eye exam: PRESENT: conjunctiva pink, EOMI, PERRLA. ABSENT: scleral icterus Ear exam: PRESENT: normal external ear exam Mouth exam: PRESENT: moist, tongue midline Neck exam: ABSENT: carotid bruit, JVD, lymphadenopathy, thyromegaly Respiratory exam: PRESENT: clear to auscultation morales. ABSENT: rales, rhonchi, wheezes Cardiovascular exam: PRESENT: RRR. ABSENT: diastolic murmur, rubs, systolic murmur Pulses: PRESENT: normal dorsalis pedis pul Vascular exam: PRESENT: normal capillary refill GI/Abdominal exam: PRESENT: normal bowel sounds, soft. ABSENT: distended, guarding, mass, organolmegaly, rebound, tenderness Rectal exam: PRESENT: deferred Extremities exam: PRESENT: full ROM, +2 edema, other - Erythema and edema is much worse on the left versus the right. ABSENT: calf tenderness, clubbing Neurological exam: PRESENT: alert, awake, oriented to person, oriented to place , oriented to time, oriented to situation, CN II-XII grossly intact. ABSENT: motor sensory deficit Psychiatric exam: PRESENT: appropriate affect, normal mood. ABSENT: homicidal ideation, suicidal ideation Skin exam: PRESENT: dry, intact, warm. ABSENT: cyanosis, rash Results Laboratory Results: Labs- Last Values WBC 10.9 10^3/uL (4.0-10.5) H 09/09/16 06:08 RBC 3.70 10^6/uL (3.72-5.28) L 09/09/16 06:08 Hgb 9.7 g/dL (12.0-15.5) L 09/09/16 06:08 Hct 28.9 % (36.0-47.0) L 09/09/16 06:08 MCV 78 fl (80-97) L 09/09/16 06:08 MCH 26.3 pg (27.0-33.4) L 09/09/16 06:08 MCHC 33.7 g/dL (32.0-36.0) 09/09/16 06:08 RDW 15.2 % (11.5-14.0) H 09/09/16 06:08 Plt Count 405 10^3/uL (150-450) 09/09/16 06:08 Total Counted 100 09/06/16 08:46 Seg Neutrophils % Not Reportable 09/06/16 08:46 Seg Neuts % (Manual) 72 % (42-78) 09/06/16 08:46 Band Neutrophils % 2 % (3-5) L 09/06/16 08:46 Lymphocytes % Not Reportable 09/06/16 08:46 Lymphocytes % (Manual) 18 % (13-45) 09/06/16 08:46 Atypical Lymphs % 1 % (0) 08/31/16 05:39 Monocytes % Not Reportable 09/06/16 08:46 Monocytes % (Manual) 6 % (3-13) 09/06/16 08:46 Eosinophils % Not Reportable 09/06/16 08:46 Eosinophils % (Manual) 1 % (0-6) 09/06/16 08:46 Basophils % Not Reportable 09/06/16 08:46 Basophils % (Manual) 0 % (0-2) 09/06/16 08:46 Metamyelocytes % 1 % (0) H 09/06/16 08:46 Absolute Neutrophils Not Reportable 09/06/16 08:46 Abs Neuts (Manual) 14.0 10^3/uL (1.7-8.2) H 09/06/16 08:46 Absolute Lymphocytes Not Reportable 09/06/16 08:46 Abs Lymphs (Manual) 3.4 10^3/uL (0.5-4.7) 09/06/16 08:46 Absolute Monocytes Not Reportable 09/06/16 08:46 Abs Monocytes (Manual) 1.1 10^3/uL (0.1-1.4) 09/06/16 08:46 Absolute Eosinophils Not Reportable 09/06/16 08:46 Absolute Eos (Manual) 0.2 10^3/uL (0.0-0.6) 09/06/16 08:46 Absolute Basophils Not Reportable 09/06/16 08:46 Abs Basophils (Manual) 0.0 10^3/uL (0.0-0.2) 09/06/16 08:46 Toxic Granulation 1+ 09/06/16 08:46 Toxic Vacuolation PRESENT 09/04/16 05:34 Dohle Bodies PRESENT 09/01/16 06:39 Clumped Platelets PRESENT 09/01/16 06:39 Large Platelets PRESENT 08/30/16 15:35 Platelet Comment ADEQUATE 09/06/16 08:46 Hypochromasia SLIGHT 09/06/16 08:46 Poikilocytosis 1+ 09/01/16 06:39 Anisocytosis SLIGHT 09/05/16 11:04 Microcytosis SLIGHT 09/06/16 08:46 Target Cells SLIGHT 09/05/16 11:04 Ovalocytes SLIGHT 09/01/16 06:39 Lowell Cells SLIGHT 09/01/16 06:39 Rouleaux SLIGHT 09/01/16 06:39 D-Dimer 3.18 ug/mL (0.00-0.50) H 08/30/16 11:28 Sodium 142.4 mmol/L (137-145) 09/09/16 06:08 Potassium 3.9 mmol/L (3.6-5.0) 09/09/16 06:08 Chloride 107 mmol/L (98-107) 09/09/16 06:08 Carbon Dioxide 25 mmol/L (22-30) 09/09/16 06:08 Anion Gap 10 (5-19) 09/09/16 06:08 BUN 12 mg/dL (7-20) 09/09/16 06:08 Creatinine 0.90 mg/dL (0.52-1.25) 09/09/16 06:08 Est GFR ( Amer) > 60 (>60) 09/09/16 06:08 Est GFR (Non-Af Amer) > 60 (>60) 09/09/16 06:08 Glucose 109 mg/dL (75-110) 09/09/16 06:08 Lactic Acid 1.6 mmol/L (0.7-2.1) 08/30/16 14:24 Calcium 8.0 mg/dL (8.4-10.2) L 09/09/16 06:08 Magnesium 1.9 mg/dL (1.6-2.3) 09/09/16 06:08 Total Bilirubin 0.9 mg/dL (0.2-1.3) 08/30/16 11:28 Direct Bilirubin 0.6 mg/dL (0.0-0.4) H 08/30/16 11:28 Indirect Bilirubin Not Reportable 08/30/16 11:28 Neonat Total Bilirubin Not Reportable 08/30/16 11:28 AST 49 U/L (14-36) H 08/30/16 11:28 ALT 33 U/L (9-52) 08/30/16 11:28 Alkaline Phosphatase 164 U/L (38-126) H 08/30/16 11:28 Creatine Kinase 42 U/L (30-135) 09/03/16 19:33 Total Protein 7.1 g/dL (6.3-8.2) 08/30/16 11:28 Albumin 3.5 g/dL (3.5-5.0) 08/30/16 11:28 Urine Color YELLOW 09/03/16 20:30 Urine Appearance SLIGHTLY-CLOUDY 09/03/16 20:30 Urine pH 5.0 (5.0-9.0) 09/03/16 20:30 Ur Specific Jay 1.012 09/03/16 20:30 Urine Protein NEGATIVE mg/dL (NEGATIVE) 09/03/16 20:30 Urine Glucose (UA) NEGATIVE mg/dL (NEGATIVE) 09/03/16 20:30 Urine Ketones NEGATIVE mg/dL (NEGATIVE) 09/03/16 20:30 Urine Blood MODERATE (NEGATIVE) H 09/03/16 20:30 Urine Nitrite NEGATIVE (NEGATIVE) 09/03/16 20:30 Urine Bilirubin NEGATIVE (NEGATIVE) 09/03/16 20:30 Urine Urobilinogen NEGATIVE mg/dL (<2.0) 09/03/16 20:30 Ur Leukocyte Esterase NEGATIVE (NEGATIVE) 09/03/16 20:30 Urine WBC (Auto) 4 /HPF 09/03/16 20:30 Urine RBC (Auto) 5 /HPF 09/03/16 20:30 U Hyaline Cast (Auto) 32 /LPF 08/30/16 13:30 Urine Bacteria (Auto) TRACE /HPF 09/03/16 20:30 Urine WBC Clumps MANY /HPF 08/30/16 13:30 Squamous Epi Cells Auto 2 /HPF 09/03/16 20:30 U Non-Squamous Epis Auto 3 /HPF 08/30/16 13:30 Urine Mucus (Auto) MANY /LPF 08/30/16 13:30 Urine Ascorbic Acid NEGATIVE (NEGATIVE) 09/03/16 20:30 Slides for Path Review PATHOLOGIST REVIEWED 08/30/16 15:35 09/03/16 16:13 Blood Culture - Final Blood NO GROWTH IN 5 DAYS 09/03/16 14:30 Gram Stain - Final Leg - Cellulitis Wound Culture - Final NO GROWTH 3 DAYS 09/03/16 13:57 Blood Culture - Final Blood NO GROWTH IN 5 DAYS 08/30/16 15:35 Blood Culture - Final Blood NO GROWTH IN 5 DAYS 08/30/16 14:24 Blood Culture - Final Blood NO GROWTH IN 5 DAYS 08/30/16 13:30 Urine Culture - Final Clean Catch Midstream Proteus Mirabilis Escherichia Coli Impressions: Tibia/Fibula X-Ray 08/30/16 14:06 IMPRESSION: NEGATIVE STUDY OF THE LEFT TIBIA AND FIBULA. NO RADIOGRAPHIC EVIDENCE OF ACUTE INJURY. Foot X-Ray 08/30/16 14:16 IMPRESSION: NEGATIVE STUDY OF THE LEFT FOOT. NO RADIOGRAPHIC EVIDENCE OF ACUTE INJURY. Chest X-Ray 09/03/16 00:00 IMPRESSION: NO SIGNIFICANT RADIOGRAPHIC FINDING IN THE CHEST. Assessment & Plan - Diagnosis (1) Cellulitis Qualifiers: Site of cellulitis: extremity Site of cellulitis of extremity: lower extremity Laterality: left Qualified Code(s): L03.116 - Cellulitis of left lower limb Is this a current diagnosis for this admission?: YesPlan: The patient is status post debridement with surgery. Recommend Hibiclens washes. Patient will need long-term IV antibiotics. Will place PICC line. (2) Chronic venous stasis dermatitis Is this a current diagnosis for this admission?: Yes (3) Ambulatory dysfunction Is this a current diagnosis for this admission?: YesPlan: Have discussed rehabilitation with the patient. The patient is declining this and opts for home health and rehabilitation. (4) Hypertension Qualifiers: Hypertension type: essential hypertension Qualified Code(s): I10 - Essential (primary) hypertension Is this a current diagnosis for this admission?: YesPlan: The pressure remains significantly elevated will continue current blood pressure medications and added lisinopril for cardiorenal protection. Will maximize existing therapies. (5) UTI (urinary tract infection) Qualifiers: Urinary tract infection type: site unspecified Hematuria presence: with hematuria Qualified Code(s): N39.0 - Urinary tract infection, site not specified Is this a current diagnosis for this admission?: YesPlan: Polymicrobial. Sensitive to Zosyn. 09/02/16 05:59 WBC 47.1 H* 08/30/16 13:30 Urine Culture - Final Clean Catch Midstream Proteus Mirabilis Escherichia Coli (6) Chronic kidney disease, stage 3 Is this a current diagnosis for this admission?: YesPlan: The patient's baseline creatinine is most likely in the 1.2 range. Will follow up renal function and potassium given the patient will be started on IVÁN. (7) SIRS (systemic inflammatory response syndrome) Is this a current diagnosis for this admission?: YesPlan: Gradually improved - Time Time Spent with patient: 25-34 minutes Medications reviewed and adjusted accordingly: Yes Anticipated discharge: Home with Homehealth Within: within 24 hours, within 48 hours Disposition: The patient is a full code. Pending patient's symptomatology and diagnostic findings will reevaluate in the a.m.
[2016-09-10] MEDS ORDERED: FUROSEMIDE INJ/PF 40 MG/4 ML SDV IV ONE (16:30)
[2016-09-10 16:48] LABS: PROTHROMBIN TIME 13.4 SEC (11.4-15.4)
[2016-09-10] MEDS: POLYETHYLENE GLYCOL 3350 POWDER 17 GM/1 PACKET PO SCH (17:10)
[2016-09-10] MEDS: TRAZODONE HCL 50 MG TABLET PO SCH (22:59)
[2016-09-10] MEDS: TRAMADOL HCL 50 MG TABLET PO PRN (23:17)
[2016-09-11] MEDS: HEPARIN SOD (PORCINE) 5,000 UNIT/ML 1 ML SYRINGE SUBCUT SCH ×3 (05:05→22:19)
[2016-09-11] MEDS: FAMOTIDINE 20 MG TABLET PO SCH ×2 (05:05→17:59)
[2016-09-11 06:42] LABS: HEMATOCRIT 27.7 % (36.0-47.0); HEMOGLOBIN 9.2 g/dL (12.0-15.5); HGB HCT DIFFERENCE -0.1; MEAN CORPUSCULAR HEMOGLOBIN 26.2 pg (27.0-33.4); MEAN CORPUSCULAR HGB CONC 33.3 g/dL (32.0-36.0); MEAN CORPUSCULAR VOLUME 79 fl (80-97); RED BLOOD COUNT 3.52 10^6/uL (3.72-5.28); RED CELL DISTRIBUTION WIDTH 14.8 % (11.5-14.0); WHITE BLOOD COUNT 8.6 10^3/uL (4.0-10.5)
[2016-09-11 07:01] LABS: ANION GAP 10 (5-19); BLOOD UREA NITROGEN 10 mg/dL (7-20); CALCIUM 8.2 mg/dL (8.4-10.2); CARBON DIOXIDE 25 mmol/L (22-30); CHLORIDE 104 mmol/L (98-107); GLUCOSE 96 mg/dL (75-110); MAGNESIUM 1.7 mg/dL (1.6-2.3); POTASSIUM 3.9 mmol/L (3.6-5.0); SODIUM 139.2 mmol/L (137-145)
[2016-09-11] MEDS: TRAMADOL HCL 50 MG TABLET PO PRN (08:49)
[2016-09-11] MEDS: LISINOPRIL 10 MG TABLET PO SCH ×2 (11:28→22:25)
[2016-09-11] MEDS: DOCUSATE SODIUM 100 MG CAPSULE PO SCH ×2 (11:28→18:00)
[2016-09-11] MEDS: AMLODIPINE BESYLATE 5 MG TABLET PO SCH ×2 (11:29→22:25)
[2016-09-11] MEDS: LACTOBACILLUS ACIDOPHILUS 250 MG TAB PO SCH ×2 (11:29→22:25)
[2016-09-11] MEDS: PIPERACILLIN SODIUM/TAZOBACTAM 3.375 GM in NORMAL SALINE 100 ML IV SCH ×2 (11:30→17:59)
[2016-09-11] MEDS ORDERED: PIPERACILLIN SODIUM/TAZOBACTAM 4.5 GM in NORMAL SALINE 100 ML IV SCH (12:00)
--- NOTE | 2016-09-11 16:24 | PDOC PROGRESS REPORT ---
Subjective Progress Note for:: 09/11/16 Subjective:: Patient seen on morning rounds. She is resting in bed with her legs elevated. She has bilateral lower extremity edema, redness both lower extremities now, and exfoliating skin especially over the left lower leg . She denies any fever or chills. She denies any shortness of breath, dyspnea or chest pain. She states swelling and redness have improved since yesterday. She states initially she did not have redness of the right lower extremity when she presented here. She complains of moderate pain in both legs She states prior to her admission she was able to ambulate without difficulty. Now it is difficult for her to stand and pivot to the bedside commode. She is improving with physical therapy. She was working part-time prior to her arrival here. She does admit to chronic venous insufficiency in both legs and intermittent swelling. Physical Exam Vital Signs: Temp Pulse Resp BP Pulse Ox 98.1 F 95 16 167/61 H 97 09/11/16 11:26 09/11/16 11:26 09/11/16 11:26 09/11/16 11:26 09/11/16 11:26 Intake & Output 09/10/16 09/11/16 09/12/16 06:59 06:59 06:59 Intake Total 1495 1368 Output Total 600 1200 Balance 895 168 Weight 104.1 kg 102.4 kg General appearance: PRESENT: no acute distress, morbidly obese, well-developed, well-nourished Head exam: PRESENT: atraumatic, normocephalic Eye exam: PRESENT: conjunctiva pink, EOMI, PERRLA. ABSENT: scleral icterus Ear exam: PRESENT: normal external ear exam Mouth exam: PRESENT: moist, tongue midline Neck exam: ABSENT: carotid bruit, JVD, lymphadenopathy, thyromegaly Respiratory exam: PRESENT: clear to auscultation morales. ABSENT: rales, rhonchi, wheezes Cardiovascular exam: PRESENT: RRR. ABSENT: diastolic murmur, rubs, systolic murmur Pulses: PRESENT: normal carotid pulses, normal radial pulses Vascular exam: PRESENT: normal capillary refill GI/Abdominal exam: PRESENT: normal bowel sounds, soft. ABSENT: distended, guarding, mass, organolmegaly, rebound, tenderness Rectal exam: PRESENT: deferred Extremities exam: PRESENT: calf tenderness, tenderness, +2 edema - Left greater than right, reddened areas on anterior Musculoskeletal exam: PRESENT: full ROM, tenderness Neurological exam: PRESENT: alert, awake, oriented to person, oriented to place , oriented to time, oriented to situation, CN II-XII grossly intact. ABSENT: motor sensory deficit Psychiatric exam: PRESENT: appropriate affect, normal mood. ABSENT: homicidal ideation, suicidal ideation Skin exam: PRESENT: dry, intact, warm. ABSENT: cyanosis, rash Results Laboratory Results: 09/11/16 05:37 09/11/16 05:37 09/11/16 09/11/16 05:37 05:37 WBC 8.6 RBC 3.52 L Hgb 9.2 L Hct 27.7 L MCV 79 L MCH 26.2 L MCHC 33.3 RDW 14.8 H Plt Count 476 H Sodium 139.2 Potassium 3.9 Chloride 104 Carbon Dioxide 25 Anion Gap 10 BUN 10 Creatinine 0.90 Est GFR ( Amer) > 60 Est GFR (Non-Af Amer) > 60 Glucose 96 Calcium 8.2 L Magnesium 1.7 09/03/16 19:33 Creatine Kinase 42 Impressions: Tibia/Fibula X-Ray 08/30/16 14:06 IMPRESSION: NEGATIVE STUDY OF THE LEFT TIBIA AND FIBULA. NO RADIOGRAPHIC EVIDENCE OF ACUTE INJURY. Foot X-Ray 08/30/16 14:16 IMPRESSION: NEGATIVE STUDY OF THE LEFT FOOT. NO RADIOGRAPHIC EVIDENCE OF ACUTE INJURY. Chest X-Ray 09/03/16 00:00 IMPRESSION: NO SIGNIFICANT RADIOGRAPHIC FINDING IN THE CHEST. Guidance Fluoroscopy 09/11/16 00:00 IMPRESSION: SUCCESSFUL PLACEMENT OF A 5 FR DUAL LUMEN 40 CM PICC IN THE left basilic VEIN. Interventional Vascular Procedure 09/11/16 00:00 IMPRESSION: SUCCESSFUL PLACEMENT OF A 5 FR DUAL LUMEN 40 CM PICC IN THE left basilic VEIN. PICC Line Insertion 09/11/16 00:00 IMPRESSION: SUCCESSFUL PLACEMENT OF A 5 FR DUAL LUMEN 40 CM PICC IN THE left basilic VEIN. Assessment & Plan - Diagnosis (1) Cellulitis Qualifiers: Site of cellulitis: extremity Site of cellulitis of extremity: lower extremity Laterality: left Qualified Code(s): L03.116 - Cellulitis of left lower limb Is this a current diagnosis for this admission?: YesPlan: Improvement in appearance of cellulitis of bilateral lower extremity since yesterday. Her leukocytosis has dropped 8k. There is no further bandemia present time. Swelling has improved as well. Cultures continue to be negative. Will discuss with Irma JEAN-BAPTISTE regarding length of IV antibiotics (2) UTI (urinary tract infection) Qualifiers: Urinary tract infection type: site unspecified Hematuria presence: with hematuria Qualified Code(s): N39.0 - Urinary tract infection, site not specified Is this a current diagnosis for this admission?: Yes (3) Bandemia Is this a current diagnosis for this admission?: YesPlan: resolved (4) Chronic venous stasis dermatitis Is this a current diagnosis for this admission?: YesPlan: We'll obtain venous ultrasound of right lower extremity to rule out DVT. (5) Hypertension Qualifiers: Hypertension type: essential hypertension Qualified Code(s): I10 - Essential (primary) hypertension Is this a current diagnosis for this admission?: YesPlan: Continue current medications. (6) Lower extremity edema Qualifiers: Laterality: bilateral Qualified Code(s): R60.0 - Localized edema Is this a current diagnosis for this admission?: YesPlan: Improving - Time Time Spent with patient: 25-34 minutes Critical Time spent with patient: 15-24 minutes Medications reviewed and adjusted accordingly: Yes
[2016-09-11] MEDS: POLYETHYLENE GLYCOL 3350 POWDER 17 GM/1 PACKET PO SCH (18:00)
--- NOTE | 2016-09-11 18:33 | PROGRESS NOTE E ---
Progress Note NAME: ANGIE VUONG : 1940 AGE: 76Y DATE: 09/11/2016 ROOM: 426 SUBJECTIVE: The patient feels a little better. The swelling is better although still swollen primarily the left leg with some serous drainage. She is on IV antibiotics. PLAN: Plan is to continue elevating her leg and IV antibiotic therapy. I spoke to the daughter, and she said there are a couple of surgeons in [place] that they plan to bring her mother to for followup for the venous insufficiency. DICTATING PHYSICIAN: WILL ROBERT M.D. [id number] [id number] ID: [id number] JOB#: [id number] ACCT: [id number] cc: >
[2016-09-11] MEDS: TRAZODONE HCL 50 MG TABLET PO SCH (22:25)
[2016-09-11] MEDS: NORMAL SALINE 10 ML SDV (SCHEDULED) IV SCH (22:27)
[2016-09-12] MEDS: PIPERACILLIN SODIUM/TAZOBACTAM 3.375 GM in NORMAL SALINE 100 ML IV SCH ×4 (01:12→18:06)
[2016-09-12] MEDS: NORMAL SALINE 10 ML SDV (AFTER EACH USE) IV PRN ×3 (01:55→13:19)
[2016-09-12] MEDS: HEPARIN SOD (PORCINE) 5,000 UNIT/ML 1 ML SYRINGE SUBCUT SCH ×3 (06:15→22:08)
[2016-09-12] MEDS: FAMOTIDINE 20 MG TABLET PO SCH ×2 (06:15→18:06)
--- NOTE | 2016-09-12 09:45 | PDOC PROGRESS REPORT ---
Subjective Progress Note for:: 09/12/16 Subjective:: No complaints Physical Exam Vital Signs: Temp Pulse Resp BP Pulse Ox 97.8 F 94 17 180/85 H 96 09/12/16 07:28 09/12/16 07:28 09/12/16 07:28 09/12/16 07:28 09/12/16 07:28 Intake & Output 09/11/16 09/12/16 09/13/16 06:59 06:59 06:59 Intake Total 1368 1460 Output Total 1200 Balance 168 1460 Weight 102.4 kg 101 kg Extremities exam: PRESENT: other - Bilateral lower extremity edema with the discoloration and erythema diffusely of the lower legs with the exfoliation. It appears very dry at this time with the no drainage. Results Laboratory Results: 09/11/16 05:37 09/11/16 05:37 09/03/16 19:33 Creatine Kinase 42 Impressions: Tibia/Fibula X-Ray 08/30/16 14:06 IMPRESSION: NEGATIVE STUDY OF THE LEFT TIBIA AND FIBULA. NO RADIOGRAPHIC EVIDENCE OF ACUTE INJURY. Foot X-Ray 08/30/16 14:16 IMPRESSION: NEGATIVE STUDY OF THE LEFT FOOT. NO RADIOGRAPHIC EVIDENCE OF ACUTE INJURY. Chest X-Ray 09/03/16 00:00 IMPRESSION: NO SIGNIFICANT RADIOGRAPHIC FINDING IN THE CHEST. Guidance Fluoroscopy 09/11/16 00:00 IMPRESSION: SUCCESSFUL PLACEMENT OF A 5 FR DUAL LUMEN 40 CM PICC IN THE left basilic VEIN. Interventional Vascular Procedure 09/11/16 00:00 IMPRESSION: SUCCESSFUL PLACEMENT OF A 5 FR DUAL LUMEN 40 CM PICC IN THE left basilic VEIN. PICC Line Insertion 09/11/16 00:00 IMPRESSION: SUCCESSFUL PLACEMENT OF A 5 FR DUAL LUMEN 40 CM PICC IN THE left basilic VEIN. Assessment & Plan - Diagnosis (1) Chronic venous stasis dermatitis Is this a current diagnosis for this admission?: YesPlan: Has responded well with antibiotics will place her on Xeroform dressings since that the skin does appear to be drying out too much at this point. The legs need to be elevated the much more.
[2016-09-12] MEDS: AMLODIPINE BESYLATE 5 MG TABLET PO SCH ×2 (12:05→22:09)
[2016-09-12] MEDS: LACTOBACILLUS ACIDOPHILUS 250 MG TAB PO SCH ×2 (12:06→22:09)
[2016-09-12] MEDS: LISINOPRIL 10 MG TABLET PO SCH ×2 (12:06→22:10)
[2016-09-12] MEDS: NORMAL SALINE 10 ML SDV (SCHEDULED) IV SCH ×2 (12:07→22:41)
[2016-09-12] MEDS: DOCUSATE SODIUM 100 MG CAPSULE PO SCH ×2 (12:08→17:50)
[2016-09-12] MEDS: TRAMADOL HCL 50 MG TABLET PO PRN ×2 (12:28→22:10)
--- NOTE | 2016-09-12 14:54 | PDOC PROGRESS REPORT ---
Subjective Progress Note for:: 09/12/16 Subjective:: Patient seen on morning rounds. She is resting in bed with her legs elevated. She has bilateral lower extremity edema, redness both lower extremities now, and exfoliating skin especially over the left lower leg . She denies any fever or chills. She denies any shortness of breath, dyspnea or chest pain. She states swelling and redness have improved since yesterday. She complains of moderate pain in both legs She states prior to her admission she was able to ambulate without difficulty. Now it is difficult for her to stand and pivot to the bedside commode. She is improving with physical therapy. She was working part-time prior to her arrival here. She does admit to chronic venous insufficiency in both legs and intermittent swelling. Physical Exam Vital Signs: Temp Pulse Resp BP Pulse Ox 97.9 F 93 16 174/58 H 98 09/12/16 11:23 09/12/16 11:23 09/12/16 11:23 09/12/16 11:23 09/12/16 11:23 Intake & Output 09/11/16 09/12/16 09/13/16 06:59 06:59 06:59 Intake Total 1368 1460 Output Total 1200 Balance 168 1460 Weight 102.4 kg 101 kg General appearance: PRESENT: no acute distress, morbidly obese, well-developed, well-nourished Head exam: PRESENT: atraumatic, normocephalic Eye exam: PRESENT: conjunctiva pink, EOMI, PERRLA. ABSENT: scleral icterus Ear exam: PRESENT: normal external ear exam Mouth exam: PRESENT: moist, tongue midline Neck exam: ABSENT: carotid bruit, JVD, lymphadenopathy, thyromegaly Respiratory exam: PRESENT: clear to auscultation morales. ABSENT: rales, rhonchi, wheezes Cardiovascular exam: PRESENT: RRR. ABSENT: diastolic murmur, rubs, systolic murmur Pulses: PRESENT: normal dorsalis pedis pul Vascular exam: PRESENT: normal capillary refill GI/Abdominal exam: PRESENT: normal bowel sounds, soft. ABSENT: distended, guarding, mass, organolmegaly, rebound, tenderness Rectal exam: PRESENT: deferred Extremities exam: PRESENT: calf tenderness, tenderness - +2 edema left lower extremity, exfoliating skin eschar over debrided area on anterior left calf. + 1 edema right lower extremity with exfoliating skin, +1 edema, +2 edema. ABSENT : clubbing, pedal edema Musculoskeletal exam: PRESENT: ambulatory Neurological exam: PRESENT: alert, awake, oriented to person, oriented to place , oriented to time, oriented to situation, CN II-XII grossly intact. ABSENT: motor sensory deficit Psychiatric exam: PRESENT: appropriate affect, normal mood. ABSENT: homicidal ideation, suicidal ideation Skin exam: PRESENT: dry, intact, warm. ABSENT: cyanosis, rash Results Laboratory Results: 09/11/16 05:37 09/11/16 05:37 09/03/16 19:33 Creatine Kinase 42 Impressions: Tibia/Fibula X-Ray 08/30/16 14:06 IMPRESSION: NEGATIVE STUDY OF THE LEFT TIBIA AND FIBULA. NO RADIOGRAPHIC EVIDENCE OF ACUTE INJURY. Foot X-Ray 08/30/16 14:16 IMPRESSION: NEGATIVE STUDY OF THE LEFT FOOT. NO RADIOGRAPHIC EVIDENCE OF ACUTE INJURY. Chest X-Ray 09/03/16 00:00 IMPRESSION: NO SIGNIFICANT RADIOGRAPHIC FINDING IN THE CHEST. Guidance Fluoroscopy 09/11/16 00:00 IMPRESSION: SUCCESSFUL PLACEMENT OF A 5 FR DUAL LUMEN 40 CM PICC IN THE left basilic VEIN. Interventional Vascular Procedure 09/11/16 00:00 IMPRESSION: SUCCESSFUL PLACEMENT OF A 5 FR DUAL LUMEN 40 CM PICC IN THE left basilic VEIN. PICC Line Insertion 09/11/16 00:00 IMPRESSION: SUCCESSFUL PLACEMENT OF A 5 FR DUAL LUMEN 40 CM PICC IN THE left basilic VEIN. Assessment & Plan - Diagnosis (1) Cellulitis Qualifiers: Site of cellulitis: extremity Site of cellulitis of extremity: lower extremity Laterality: left Qualified Code(s): L03.116 - Cellulitis of left lower limb Is this a current diagnosis for this admission?: YesPlan: Improvement in appearance of cellulitis of bilateral lower extremity since yesterday. Her leukocytosis has dropped 8k. There is no further bandemia present time. Swelling has improved as well. Cultures continue to be negative. The patient's case was discussed with Irma infectious disease, . She feels IV anabiotic can be discontinued after today. She's had 14 days of coverage. He'll be placed on 1 week of oral prophylactic coverage (2) UTI (urinary tract infection) Qualifiers: Urinary tract infection type: site unspecified Hematuria presence: with hematuria Qualified Code(s): N39.0 - Urinary tract infection, site not specified Is this a current diagnosis for this admission?: YesPlan: Treatment complete (3) Bandemia Is this a current diagnosis for this admission?: YesPlan: resolved (4) Chronic venous stasis dermatitis Is this a current diagnosis for this admission?: YesPlan: We'll obtain venous ultrasound of right lower extremity to rule out DVT. (5) Hypertension Qualifiers: Hypertension type: essential hypertension Qualified Code(s): I10 - Essential (primary) hypertension Is this a current diagnosis for this admission?: YesPlan: Continue current medications. (6) Lower extremity edema Qualifiers: Laterality: bilateral Qualified Code(s): R60.0 - Localized edema Is this a current diagnosis for this admission?: YesPlan: Improving - Time Time Spent with patient: 25-34 minutes Critical Time spent with patient: 15-24 minutes Anticipated discharge: Home with Homehealth Within: within 24 hours
[2016-09-12] MEDS: POLYETHYLENE GLYCOL 3350 POWDER 17 GM/1 PACKET PO SCH (17:50)
[2016-09-12] MEDS: TRAZODONE HCL 50 MG TABLET PO SCH (22:10)
[2016-09-13] MEDS: PIPERACILLIN SODIUM/TAZOBACTAM 3.375 GM in NORMAL SALINE 100 ML IV SCH ×2 (00:44→06:20)
[2016-09-13] MEDS: FAMOTIDINE 20 MG TABLET PO SCH (06:19)
[2016-09-13] MEDS: HEPARIN SOD (PORCINE) 5,000 UNIT/ML 1 ML SYRINGE SUBCUT SCH (06:20)
[2016-09-13 07:11] LABS: ABSOLUTE BASOPHILS # (AUTO) 0.1 10^3/uL (0.0-0.2); ABSOLUTE EOSINOPHILS # (AUTO) 0.2 10^3/uL (0.0-0.6); ABSOLUTE LYMPHOCYTES (AUTO) 1.1 10^3/uL (0.5-4.7); ABSOLUTE MONOCYTES (AUTO) 0.9 10^3/uL (0.1-1.4); ABSOLUTE NEUT (AUTO) 4.4 10^3/uL (1.7-8.2); BASOPHILS % (AUTO) 1.3 % (0-2); EOSINOPHILS % (AUTO) 2.9 % (0-6); HEMATOCRIT 27.8 % (36.0-47.0); HEMOGLOBIN 9.1 g/dL (12.0-15.5); HGB HCT DIFFERENCE -0.5; LYMPHOCYTES % (AUTO) 15.9 % (13-45); MEAN CORPUSCULAR HEMOGLOBIN 26.2 pg (27.0-33.4); MEAN CORPUSCULAR HGB CONC 32.6 g/dL (32.0-36.0); MEAN CORPUSCULAR VOLUME 81 fl (80-97); MONOCYTES % (AUTO) 12.9 % (3-13); RED BLOOD COUNT 3.46 10^6/uL (3.72-5.28); RED CELL DISTRIBUTION WIDTH 15.3 % (11.5-14.0); WHITE BLOOD COUNT 6.6 10^3/uL (4.0-10.5)
[2016-09-13 07:30] LABS: CHOLESTEROL 181.79 mg/dL (0-200); Direct HDL 47 mg/dL (>40); TRIGLYCERIDES 185 mg/dL (<150)
[2016-09-13 07:41] LABS: DIRECT LDL 101 mg/dL (<100)
[2016-09-13] MEDS: LACTOBACILLUS ACIDOPHILUS 250 MG TAB PO SCH (09:43)
[2016-09-13] MEDS: AMLODIPINE BESYLATE 5 MG TABLET PO SCH (09:43)
[2016-09-13] MEDS: DOCUSATE SODIUM 100 MG CAPSULE PO SCH (09:46)
[2016-09-13] MEDS: NORMAL SALINE 10 ML SDV (SCHEDULED) IV SCH (09:46)
--- NOTE | 2016-09-13 10:29 | PDOC PROGRESS REPORT ---
Subjective Progress Note for:: 09/13/16 Subjective:: Patient not interested in circumferential medicated wraps today. Physical Exam Vital Signs: Temp Pulse Resp BP Pulse Ox 97.7 F 85 17 137/50 H 96 09/13/16 07:20 09/13/16 07:20 09/13/16 07:20 09/13/16 07:20 09/13/16 07:20 Intake & Output 09/12/16 09/13/16 09/14/16 06:59 06:59 06:59 Intake Total 1460 1874 Output Total 1000 Balance 1460 874 Weight 101 kg 104 kg Musculoskeletal exam: PRESENT: other - Legs are wrapped ;exfoliating skin continues to slough off. Results Laboratory Results: 09/13/16 05:40 09/11/16 05:37 09/13/16 09/13/16 05:40 05:40 WBC 6.6 RBC 3.46 L Hgb 9.1 L Hct 27.8 L MCV 81 MCH 26.2 L MCHC 32.6 RDW 15.3 H Plt Count 513 H Seg Neutrophils % 67.0 Lymphocytes % 15.9 Monocytes % 12.9 Eosinophils % 2.9 Basophils % 1.3 Absolute Neutrophils 4.4 Absolute Lymphocytes 1.1 Absolute Monocytes 0.9 Absolute Eosinophils 0.2 Absolute Basophils 0.1 Triglycerides 185 H Cholesterol 181.79 LDL Cholesterol Direct 101 H VLDL Cholesterol 37.0 H HDL Cholesterol 47 09/03/16 19:33 Creatine Kinase 42 Impressions: Tibia/Fibula X-Ray 08/30/16 14:06 IMPRESSION: NEGATIVE STUDY OF THE LEFT TIBIA AND FIBULA. NO RADIOGRAPHIC EVIDENCE OF ACUTE INJURY. Foot X-Ray 08/30/16 14:16 IMPRESSION: NEGATIVE STUDY OF THE LEFT FOOT. NO RADIOGRAPHIC EVIDENCE OF ACUTE INJURY. Chest X-Ray 09/03/16 00:00 IMPRESSION: NO SIGNIFICANT RADIOGRAPHIC FINDING IN THE CHEST. Guidance Fluoroscopy 09/11/16 00:00 IMPRESSION: SUCCESSFUL PLACEMENT OF A 5 FR DUAL LUMEN 40 CM PICC IN THE left basilic VEIN. Interventional Vascular Procedure 09/11/16 00:00 IMPRESSION: SUCCESSFUL PLACEMENT OF A 5 FR DUAL LUMEN 40 CM PICC IN THE left basilic VEIN. PICC Line Insertion 09/11/16 00:00 IMPRESSION: SUCCESSFUL PLACEMENT OF A 5 FR DUAL LUMEN 40 CM PICC IN THE left basilic VEIN. Assessment & Plan - Diagnosis (1) Chronic venous stasis dermatitis Is this a current diagnosis for this admission?: YesPlan: 1. Agree with current therapy including intravenous antibiotics on an outpatient basis for limited timeframe. I spoke with Dr. Glenis Watts who [facility]. 2. I recommend sending the patient home with dressing changes supervised by home health agency .
[2016-09-13 12:10] VITALS: BP 171/73
--- NOTE | 2016-09-13 16:36 | PDOC DISCHARGE SUMMARY ---
General - Admit/Disc Date/PCP Admission Date/Primary Care Provider: 08/30/16 16:54 Discharge Date: 09/13/16 - Discharge Diagnosis (1) Cellulitis Is this a current diagnosis for this admission?: YesSummary: Stop IV antibiotics. Continue oral antibiotics for the next week. (2) UTI (urinary tract infection) Is this a current diagnosis for this admission?: YesSummary: Resolved (3) Bandemia Is this a current diagnosis for this admission?: YesSummary: Resolved (4) Chronic venous stasis dermatitis Is this a current diagnosis for this admission?: YesSummary: Patient instructed on need to keep her legs elevated when sitting. She will follow up with vascular surgery once cellulitis is resolved (5) Hypertension Is this a current diagnosis for this admission?: YesSummary: Continue current medications. (6) Lower extremity edema Is this a current diagnosis for this admission?: YesSummary: Improved from admission some remains from chronic venous insufficiency - Additional Information Resuscitation Status: Full Code Discharge Diet: Regular Discharge Activity: Activity As Tolerated, Balance Activity w/Rest, Keep Legs Elevated Home Medications: Ranitidine HCl [Zantac 75 mg Tablet] 75 mg PO DAILY 09/01/16 Acetaminophen [Tylenol 325 mg Tablet] 650 mg PO Q4HP PRN tablet 09/13/16 Amlodipine Besylate [Norvasc 5 mg Tablet] 5 mg PO Q12 #60 tablet 09/13/16 Bismuth Tribromoph/Petrolatum [Xeroform Petrolatum Dress] 1 bandage TP DAILY # 30 pkg 09/13/16 Clindamycin HCl [Cleocin HCl] 300 mg PO TID #21 capsule 09/13/16 Gauze Bandage [Rolled Gauze] 1 each TP DAILY #30 bandage 09/13/16 Lactobacillus Acidophilus [Acidophilus Lactobacilli] 1 each PO BID #60 capsule 09/13/16 Lisinopril [Prinivil 10 mg Tablet] 20 mg PO Q12 #60 tablet 09/13/16 Tramadol HCl [Ultram 50 mg Tablet] 50 mg PO Q4HP PRN #30 tablet 09/13/16 History of Present Illness Patient complains of: Left lower leg swelling and redness History of Present Illness: ANGIE VUONG is a 76 year old female with past medical history of untreated hypertension chronic lower extremity swelling presents to days after sustaining a fall with one-day history of left lower extremity pain and swelling. She states that she has never formally been diagnosed with chronic venous stasis however she has obvious exam findings consistent with this. Hospital Course Hospital Course: She presented to the hospitalist service on telemetry. Blood cultures 2 were obtained prior to the initiation of IV broad-spectrum antibiotics. Surgicalist , was consulted for wound care assistance. Patient's leukocytosis and bandemia worsened over the next 2 days. The right leg began to become red and swollen as well. IV antibiotics were changed. Her leukocytosis gradually resolved. She has extensive blistering, exfoliating of dry skin and weeping from her lower extremities. Dr. Matthew did do a local debridement on her left lower extremity. She had physical therapy for improved dysfunction. She is now ambulating with assistance a walker without difficulty. [facility] was consulted. Blood cultures 4 remained negative. Infectious disease recommended 2 weeks of IV antibiotics, followed by 1 week of oral. She will follow-up with Dr. Watts in wound care as an outpatient. She'll have home health and home physical therapy. Primary care provider was arranged by bret. Physical Exam Vital Signs: Temp Pulse Resp BP Pulse Ox 98.0 F 85 18 171/73 H 97 09/13/16 12:08 09/13/16 12:08 09/13/16 12:08 09/13/16 12:08 09/13/16 12:08 Intake & Output 09/12/16 09/13/16 09/14/16 06:59 06:59 06:59 Intake Total 1460 1874 Output Total 1000 Balance 1460 874 Weight 101 kg 104 kg General appearance: PRESENT: no acute distress, morbidly obese, well-developed, well-nourished Head exam: PRESENT: atraumatic, normocephalic Eye exam: PRESENT: conjunctiva pink, EOMI, PERRLA. ABSENT: scleral icterus Ear exam: PRESENT: normal external ear exam Mouth exam: PRESENT: moist, tongue midline Neck exam: ABSENT: carotid bruit, JVD, lymphadenopathy, thyromegaly Respiratory exam: PRESENT: clear to auscultation morales. ABSENT: rales, rhonchi, wheezes Cardiovascular exam: PRESENT: RRR. ABSENT: diastolic murmur, rubs, systolic murmur Pulses: PRESENT: normal dorsalis pedis pul Vascular exam: PRESENT: pallor GI/Abdominal exam: PRESENT: normal bowel sounds, soft. ABSENT: distended, guarding, mass, organolmegaly, rebound, tenderness Rectal exam: PRESENT: deferred Extremities exam: PRESENT: calf tenderness, +1 edema, +2 edema Musculoskeletal exam: PRESENT: ambulatory Neurological exam: PRESENT: alert, awake, oriented to person, oriented to place , oriented to time, oriented to situation, CN II-XII grossly intact. ABSENT: motor sensory deficit Psychiatric exam: PRESENT: appropriate affect, normal mood. ABSENT: homicidal ideation, suicidal ideation Skin exam: PRESENT: dry, intact, warm. ABSENT: cyanosis, rash Results Laboratory Results: 09/13/16 05:40 09/11/16 05:37 09/13/16 09/13/16 05:40 05:40 WBC 6.6 RBC 3.46 L Hgb 9.1 L Hct 27.8 L MCV 81 MCH 26.2 L MCHC 32.6 RDW 15.3 H Plt Count 513 H Seg Neutrophils % 67.0 Lymphocytes % 15.9 Monocytes % 12.9 Eosinophils % 2.9 Basophils % 1.3 Absolute Neutrophils 4.4 Absolute Lymphocytes 1.1 Absolute Monocytes 0.9 Absolute Eosinophils 0.2 Absolute Basophils 0.1 Triglycerides 185 H Cholesterol 181.79 LDL Cholesterol Direct 101 H VLDL Cholesterol 37.0 H HDL Cholesterol 47 09/03/16 19:33 Creatine Kinase 42 Impressions: Tibia/Fibula X-Ray 08/30/16 14:06 IMPRESSION: NEGATIVE STUDY OF THE LEFT TIBIA AND FIBULA. NO RADIOGRAPHIC EVIDENCE OF ACUTE INJURY. Foot X-Ray 08/30/16 14:16 IMPRESSION: NEGATIVE STUDY OF THE LEFT FOOT. NO RADIOGRAPHIC EVIDENCE OF ACUTE INJURY. Chest X-Ray 09/03/16 00:00 IMPRESSION: NO SIGNIFICANT RADIOGRAPHIC FINDING IN THE CHEST. Guidance Fluoroscopy 09/11/16 00:00 IMPRESSION: SUCCESSFUL PLACEMENT OF A 5 FR DUAL LUMEN 40 CM PICC IN THE left basilic VEIN. Interventional Vascular Procedure 09/11/16 00:00 IMPRESSION: SUCCESSFUL PLACEMENT OF A 5 FR DUAL LUMEN 40 CM PICC IN THE left basilic VEIN. PICC Line Insertion 09/11/16 00:00 IMPRESSION: SUCCESSFUL PLACEMENT OF A 5 FR DUAL LUMEN 40 CM PICC IN THE left basilic VEIN. Qualifiers PATEINT BEING DISCHARGED WITH ANY OF THE FOLLOWING DIAGNOSIS?: No Plan Discharge Plan: Home with home health, wound care follow up Time Spent: Less than 30 Minutes
== END 2016-09-13 12:09 | disposition home health service (06) | DRG 603 ==
LOC: ER 10:42 → EH 16:54 → UNDOADMIN 17:20 → EH 17:20 → 4S 19:45
PROC: 02HV33Z Insertion of Infusion Device into Superior Vena Cava, Percutaneous Approach (ICD-10-PCS; principal; 2016-09-11)
PROC: 02HV33Z Insertion of Infusion Device into Superior Vena Cava, Percutaneous Approach (ICD-10-PCS; 2016-09-11)
PROC: B548ZZA Ultrasonography of Superior Vena Cava, Guidance (ICD-10-PCS; 2016-09-11)
DX: L03.116 Cellulitis of left lower limb (principal); N39.0 Urinary tract infection, site not specified; B96.20 Unspecified Escherichia coli [E. coli] as the cause of diseases classified elsewhere; B96.4 Proteus (mirabilis) (morganii) as the cause of diseases classified elsewhere; I87.2 Venous insufficiency (chronic) (peripheral); I12.9 Hypertensive chronic kidney disease with stage 1 through stage 4 chronic kidney disease, or unspecified chronic kidney disease; N18.3 Chronic kidney disease, stage 3 (moderate); Z79.899 Other long term (current) drug therapy; Z90.49 Acquired absence of other specified parts of digestive tract
CPT/HCPCS: 36415; 36569; 71020; 76937; 77001; 80048; 80053; 80061; 81001; 82550; 83036; 83605; 83735; 85025; 85027; 85379; 85610; 87040; 87070; 87086; 87088; 87186; 87205; 90471; 90715; 93005; 93010; 93306; 93925; 93971; 96365; 96367; 99285; J0360; J0690; J0696; J0878; J1642; J1644; J1940; J1956; J2405; J2543; J3370; J3490; J7030; J7060